=== PATIENT | female | born 1985 | race Caucasian/White ===

== ENCOUNTER → 2019-01-30 15:03 | Outpatient (CLI) | payer MEDICAID, SELFPAY ==
[2019-01-30 15:27] LABS: Basophils # 0.1 K/mm3 (0-0.2); Basophils % 0.6 % (0.1-2.0); Eosinophils # 0.3 K/mm3 (0.0-0.4); Eosinophils % 2.3 % (0.1-12.0); Hematocrit 43.8 % (37.0-47.0); Hemoglobin 13.5 g/dL (12.2-16.2); Lymphocytes # 2.1 K/mm3 (0.7-4.5); Lymphocytes % 19.1 % (10-50); Mean Corpuscular HGB Conc 30.8 g/dL (31.8-35.4); Mean Corpuscular Hemoglobin 29.7 pg (27.0-31.2); Mean Corpuscular Volume 96.4 fl (81-99); Mean Platelet Volume 8.9 fl (7.4-10.4); Monocytes # 0.6 K/mm3 (0.1-1.0); Monocytes % 5.3 % (1.7-9.3); Neutrophils # 8.2 K/mm3 (1.8-7.8); Neutrophils % 72.7 % (37.0-80.0); Platelet Count 331 K/mm3 (142-424); Red Blood Count 4.55 M/mm3 (4.20-5.40); Red Cell Distribution Width 13.6 % (11.5-17.5); White Blood Count 11.2 K/mm3 (4.8-10.8)
[2019-01-30 16:36] LABS: Alanine Aminotransferase 33 U/L (12-78); Albumin Level 3.7 gm/dL (3.4-5.0); Albumin/Globulin Ratio 1.1 (1.1-1.8); Alkaline Phosphatase 84 U/L (46-116); Anion Gap 18.8 mEq/L (5-15); Aspartate Amino Transferase 20 U/L (15-37); Bilirubin,Total 0.1 mg/dL (0.2-1.0); Blood Urea Nitrogen 6 mg/dL (7-18); Calcium 8.6 mg/dL (8.5-10.1); Carbon Dioxide 20 mmol/L (21.0-32.0); Chloride 106 mmol/L (98-107); Chol/HDL Ratio 4.8 (1-3.5); Cholesterol 201 mg/dL (140-200); Creatinine,Serum 1.15 mg/dL (0.55-1.02); Estimated Glomerular Filt Rate 54 ml/min (>60); Free T4 (Free Thyroxine) 0.79 ng/dl (0.76-1.46); GFR (African American) 66 ML/MIN (>60); Globulin 3.5 gm/dl (1.3-3.2); Glucose 115 mg/dL (74-106); HDL Cholesterol 42 mg/dL (29-89); LDL Cholesterol 140 mg/dL (0-130); Potassium 3.8 mmoL/L (3.5-5.1); Sodium 141 mmol/L (136-145); Thyroid Stimulating Hormone 1.83 uIU/ml (0.358-3.740); Total Protein,Serum 7.2 gm/dL (6.4-8.2); Triglycerides 94 mg/dL (30-200); VLDL Cholesterol 19 mg/dL (0-40)
== END ==
PROVIDERS: Visit Provider Emergency Medicine
DX: E66.3 Overweight (principal); F32.9 Major depressive disorder, single episode, unspecified; E55.9 Vitamin D deficiency, unspecified
CPT/HCPCS: 80053; 80061; 82652; 84439; 84443; 85025

== ENCOUNTER → 2019-02-24 17:09 | Outpatient (CLI) | payer MEDICAID, SELFPAY | PROVIDERS: Visit Provider Nurse Practitioner Family | DX: N39.0 Urinary tract infection, site not specified (principal) | CPT/HCPCS: 87086 ==

== ENCOUNTER 2019-08-02 18:33 | Emergency (ER) | payer MEDICAID, SELFPAY ==
[2019-08-02 18:48] VITALS: BP 119/76; PULSE 82; RESP 18; TEMP 36.9; O2SAT 99; BMI 29.7
[2019-08-02 18:57] LABS: Microscopic, Urine URINE MICROSCOPIC (MICROSCOPIC)
[2019-08-02 19:00] LABS: Appearance,Urine CLEAR (Clear); Blood, Urine Negative (Negative); Color,Urine YELLOW (Yellow); Glucose,Urine (UA) Negative (Negative); Ketones,Urine TRACE (Negative); Leukocyte Esterase,Urine Negative (Negative); Nitrate,Urine Negative (Negative); PH,Urine 5.5 (5.0-8.5); Protein,Urine Negative (Negative); Specific Gravity, Urine >= 1.030 (1.005-1.030); Urobilinogen,Urine 0.2 EU/dl (0.2)
[2019-08-02 19:03] LABS: Urine Pregnancy, HCG Qual. Negative (Negative)
[2019-08-02 19:05] LABS: Bilirubin,Urine Negative (Negative)
[2019-08-02 19:10] LABS: Bacteria,Urine 1+ /lpf
--- NOTE | 2019-08-02 19:15 | PC.NURSE ---
per report from Maya Lowry RN an IV was attempted and pt was very nervous, moved around a lot and said she needed a break before being stuck again.
--- NOTE | 2019-08-02 19:19 | HMH.EDGENADL ---
ED Disposition Clinical Impression: Vomiting Qualifiers: Vomiting type: unspecified Vomiting Intractability: non-intractable Nausea presence: with nausea Qualified Code(s): R11.2 - Nausea with vomiting, unspecified Disposition: Left Against Medical Advice Condition on Discharge: Fair Instructions: DI for Nausea -- Adult Referrals: Baudilio Quinones MD [Primary Care Provider] - Time of Disposition: 20:33 - Critical Care Critical Care Time: No Attestation: On 08/02/19, the high probability of a clinically significant, sudden or life threatening deterioration of the following system(s) required my full and direct attention, intervention and personal management. The time I documented below is in addition to time spent performing reported procedures but includes the following listed in this critical care notation. Medical Decision Making - Nadir Inquiry Pt receiving controlled substance: No Vital Signs: 08/02/19 18:48 08/02/19 20:14 Temperature 98.4 F 0 F L Temperature Source Oral Pulse Rate 0 L Pulse Rate [Right Radial] 82 Respiratory Rate 18 0 L Blood Pressure 0/0 L Blood Pressure [Right Arm] 119/76 Blood Pressure Mean [Right Arm] 90 Blood Pressure Source [Right Arm] Automatic Cuff Blood Pressure Position [Right Arm] Sitting 02 Sat by Pulse Oximetry 99 Oxygen Delivery Method Room Air - Lab Data Lab Results 08/02/19 15:47: Urine Color Yellow, Urine Appearance Clear, Urine pH 5.5, Ur Specific [place] >= 1.030, Urine Protein Negative, Urine Glucose (UA) Negative, Urine Ketones Trace, Urine Blood Negative, Urine Nitrate Negative, Urine Bilirubin Negative, Urine Urobilinogen 0.2, Ur Leukocyte Esterase Negative, Urine WBC 3-5, Ur Squamous Epith Cells 5-10, Urine Bacteria 1+ 08/02/19 15:47: Urine HCG, Qual Negative Orders (Tests/Meds): ED MEDICATIONS Discontinued Medications Generic Name Dose Route Start Last Admin Trade Name Freq PRN Reason Stop Dose Admin Sodium Chloride 1,000 mls @ 999 mls/hr 08/02/19 19:00 Sod Chlor 0.9% 1000ml Bag IV 08/02/19 20:00 .Q1H1M NICHELLE Ondansetron HCl 4 mg 08/02/19 18:58 Zofran 4mg/2ml Vial IV 08/02/19 18:59 ONCE ONE Ondansetron HCl 4 mg 08/02/19 19:30 08/02/19 19:31 Zofran 4mg Odt SL 08/02/19 19:31 4 mg ONCE ONE Administration ORDERS Category Date Time Status CBC w/Auto Diff [Complete Blood Count Auto Diff] Stat Lab 08/02/19 18:57 Ordered CMP [Comprehensive Metabolic Panel] Stat Lab 08/02/19 18:57 Ordered Lipase Stat Lab 08/02/19 18:57 Ordered Medical Decision Narrative: In summary this is a 34-year-old female presenting to the emergency department with generalized malaise and vomiting. Patient is in no acute distress arrival to the emergency department. Vital signs are stable. Diagnoses include viral gastroenteritis, urinary tract infection, pyelonephritis, intrauterine , extrauterine , other viral syndrome. Plan to obtain CBC, CMP, lipase, test, urinalysis. She does not have abdominal pain, doubt acute surgical abdomen. She also has had an appendectomy. Patient given IV fluid bolus and IV Zofran. test negative. No signs of urinary tract infection. Laboratory results are generally unremarkable. Shortly after my evaluation patient decided that she no longer wanted to be treated in the emergency department. She was offered many opportunities to stay for further management. Instead said she was feeling better and wanted to go home. We did not have a diagnosis at this time. Patient signed out AGAINST MEDICAL ADVICE. General Adult HPI - General Chief complaint: Nausea/Vomiting/Diarrhea Stated complaint: vomitting nausea sweating fatigue clammy Time Seen by Provider: 08/02/19 19:00 Mode of Arrival: Ambulatory Source of Information: Patient Limitations: No Limitations Description of Symptoms (Recalled from ER Triage Doc. by RN): Pt reports n/v, fatigue, clammy fee
--- NOTE | 2019-08-02 19:32 | PC.NURSE ---
Alexi Livingston attemped IV in the pt hand and was unsuccessful.
--- NOTE | 2019-08-02 19:46 | PC.NURSE ---
This nurse attempted to get IV access on pt. pt was prepped to stick right hand. pt stated i dont want to be stuck in the hand again it hurts too bad and they roll. this nurse readjusted the tourniquet to the top of the arm and attempted to stick the Pts AC. pt stated to stop and that is hurt and requested this nurse stop and remove the tourniquet as the pt reached up to untie it herself. this nurse apologized and assured her that if we can gain IV access we can better treat/ diagnose her.
--- NOTE | 2019-08-02 20:11 | PC.NURSE ---
pt walked out of room and stated she was leaving and didnt want this anymore. pt refused vitals at this time.
[2019-08-02 20:14] VITALS: BP 0/0; PULSE 0; RESP 0; TEMP -17.7; TEMP 0; O2SAT 0
== END 2019-08-02 20:16 | disposition left against medical advice (07) ==
LOC: ER 18:49
PROVIDERS: Emergency Provider Emergency Medicine; PCP Emergency Medicine
DX: K52.9 Noninfective gastroenteritis and colitis, unspecified (principal); F41.8 Other specified anxiety disorders; F17.210 Nicotine dependence, cigarettes, uncomplicated
CPT/HCPCS: 81001; 81025; 99282

== ENCOUNTER → 2019-09-28 17:18 | Outpatient (CLI) | payer MEDICAID, SELFPAY | PROVIDERS: Visit Provider Obstetrics & Gynecology | DX: N89.8 Other specified noninflammatory disorders of vagina (principal) | CPT/HCPCS: 87086; 87088; 87186 ==

== ENCOUNTER 2020-03-17 13:22 | Emergency (ER) | payer MEDICAID, SELFPAY ==
[2020-03-17 13:23] VITALS: BP 147/68; PULSE 74; RESP 16; TEMP 36.8; O2SAT 98; BMI 26.6
--- NOTE | 2020-03-17 13:35 | XR_ITS ---
PROCEDURE: XR CHEST PORTABLE CLINICAL HISTORY: chills; night sweats COMPARISON: CR CXR2V XR chest 2V from 01/30/2018 FINDINGS: The cardiomediastinal silhouette and pulmonary vascularity are within normal limits. The lungs are clear without infiltrates, suspicious nodules, or pleural effusions. No acute bony abnormalities. IMPRESSION: No acute findings. Dictated by: Mario Fernando MD 03/18/2020 06:39 Mario Fernando MD in [facility] 03/18/2020 06:39
--- NOTE | 2020-03-17 13:38 | HMH.EDGENADL ---
ED Disposition Clinical Impression: Gastroenteritis Disposition: Left Against Medical Advice Condition on Discharge: Good Instructions: DI for Diarrhea and Traveler's Diarrhea -- Adult, DI for Diarrhea and Traveler's Diarrhea -- Child, DI for Nausea -- Adult, DI for Nausea -- Child Additional Instructions: Pt eloped prior to completion of workup Referrals: Baudilio Quinones MD [Primary Care Provider] - - Critical Care Critical Care Time: No Attestation: On 03/17/20, the high probability of a clinically significant, sudden or life threatening deterioration of the following system(s) required my full and direct attention, intervention and personal management. The time I documented below is in addition to time spent performing reported procedures but includes the following listed in this critical care notation. Medical Decision Making - Medical Records Medical records reviewed: Yes: I reviewed the patient's medical records. - Nadir Inquiry Pt receiving controlled substance: No Vital Signs: 03/17/20 13:23 Temperature 98.3 F Temperature Source Oral Pulse Rate [Left Radial] 74 Respiratory Rate 16 Blood Pressure [Right Arm] 147/68 H Blood Pressure Mean [Right Arm] 94 Blood Pressure Source [Right Arm] Automatic Cuff Blood Pressure Position [Right Arm] Sitting 02 Sat by Pulse Oximetry 98 Oxygen Delivery Method Room Air Orders (Tests/Meds): ED MEDICATIONS Generic Name Dose Route Start Last Admin Trade Name Freq PRN Reason Stop Dose Admin Sodium Chloride 1,000 mls @ 999 mls/hr 03/17/20 14:00 03/17/20 13:56 Sod Chlor 0.9% 1000ml Bag IV 03/17/20 15:00 999 mls/hr .Q1H1M NICHELLE Administration Discontinued Medications Generic Name Dose Route Start Last Admin Trade Name Freq PRN Reason Stop Dose Admin Metoclopramide HCl 10 mg 03/17/20 13:53 03/17/20 13:56 Metoclopramide Hcl 10mg/2ml Vial IVP 03/17/20 13:54 10 mg ONCE ONE Administration Ondansetron HCl 4 mg 03/17/20 13:56 03/17/20 13:57 Ondansetron 4mg Odt SL 03/17/20 13:57 4 mg ONCE ONE Administration ORDERS Category Date Time Status XR chest portable Stat Exams 03/17/20 13:35 Taken Complete Blood Count Auto Diff Stat Lab 03/17/20 13:35 Ordered Comprehensive Metabolic Panel Stat Lab 03/17/20 13:35 Ordered Covid-19 IgG/IgM (H) Stat Lab 03/17/20 13:46 Ordered Covid-19 Nasal PCR ([facility]) Routine Lab 03/17/20 13:38 Ordered ESR [Erythrocyte Sedimentation Rate] Stat Lab 03/17/20 13:41 Ordered Lactic Acid Stat Lab 03/17/20 13:36 Ordered Lipase Stat Lab 03/17/20 13:36 Ordered QuantiFERON Client Incubated Stat Lab 03/17/20 13:36 Ordered General Adult HPI - General Chief complaint: Nausea/Vomiting/Diarrhea Stated complaint: vomiting,chills Time Seen by Provider: 03/17/20 13:32 Mode of Arrival: Ambulatory Limitations: No Limitations Description of Symptoms (Recalled from ER Triage Doc. by RN): Chills and vomiting since yesterday. 6 episodes since yesterday of vomiting. Denies any other issues at this time. - History of Present Illness HPI narrative: This is a 35-year-old female that presents with 1 day history of persistent vomiting and chills. Patient also reports body aches that are limited to the legs. No diarrhea no abdominal pain. No cough. Patient does report decreased sense of taste but no change in her sense of smell. She denies any cough or shortness of breath. She does report night sweats and approximately 20 pound weight loss over the course of the last several weeks. She also reports intermittent right lower molar pain but none at present. Symptoms are moderate intensity without palliating or measure. Vomiting worse after eating. - 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/mL oral concentrate 65 mg PO DAILY ml 07/31/19 03/17/20 Cariprazine HCl [Vraylar] 6 mg PO DAILY 03/17/20 03/17/20 polyethylene glycoL 3350 17 g PO .ben
--- NOTE | 2020-03-17 13:50 | PC.NURSE ---
Patient stated she wasnt feeling any relief from the Sub lingual zofran. MD notified. MD gave orders for Reglan 10mg IV. NDKA. Procedure/Medication explained to pt. Patient consented verbally to recieve medication. Reglan given to pt.
--- NOTE | 2020-03-17 14:15 | PC.NURSE ---
Addendum entered by Kevon Cox, EMT-P 03/17/20 14:18: Note time should be at 1340 when patient refused test. Original Note: Patient refused COVID test. Patient states she doesn't want it going in her nose.
[2020-03-17 14:46] VITALS: BP 147/68; PULSE 74; RESP 16; TEMP 36.8; O2SAT 98
--- NOTE | 2020-03-17 14:46 | PC.NURSE ---
Pt was seen in the Er for chills and vomiting. Once an IV was placed the pt was given fluids and reglan IV per MD. Pt got sweaty and states she just didnt feel right from that medicine and wanted her IV out and she wanted to just leave. States she didnt understand why the MD didnt just give her promethazine instead of that medicine. Educated the pt that this medicine worked for her stomach as well as the promethazine and that the reglan can cause side effects as to what she is describing. Went to get the AMA paper and tell the MD of pt symptoms and when I returned to the room. PT has DC her own IV which was on the floor and left the room. Per other staff she walked around the Er and went out the exit door.
== END 2020-03-17 15:00 | disposition left against medical advice (07) ==
PROVIDERS: Emergency Provider Emergency Medicine; PCP Emergency Medicine
DX: K52.9 Noninfective gastroenteritis and colitis, unspecified (principal); F41.8 Other specified anxiety disorders; F17.210 Nicotine dependence, cigarettes, uncomplicated; Z79.899 Other long term (current) drug therapy
CPT/HCPCS: 71045; 96365; 99282

== ENCOUNTER 2020-03-24 14:18 | Emergency (ER) | payer MEDICAID, SELFPAY ==
[2020-03-24 14:45] VITALS: BP 129/80; PULSE 71; RESP 14; TEMP 36.3; O2SAT 100; BMI 27.3
--- NOTE | 2020-03-24 15:16 | HMH.EDUTC ---
[facility] [place] Clinical Impression: Viral syndrome, Exposure to COVID-19 virus Disposition: Home, Self-Care Condition on Discharge: Good Instructions: DI for COVID-19 (Suspected or Confirmed ), Preventing the Spread of Coronavirus Discharge Instructions Additional Instructions: Drink plenty of fluids. Take tylenol for pain or fever. Return if you begin to have difficulty breathing. Follow up with your regular doctor. GO TO THE ER FOR ANY WORSENING SYMPTOMS Prescriptions: Ondansetron [Zofran 4mg ODT] 4 mg PO Q8HP PRN #12 tab.rapdis PRN Reason: Nausea Transmission Status: Received by [facility] #[id number] Referrals: Baudilio Quinones MD [Primary Care Provider] - Time of Disposition: 15:24 Medical Decision Making - Medical Records Medical records reviewed: No: I reviewed the patient's medical records. - Nadir Inquiry Pt receiving controlled substance: No Vital Signs: 03/24/20 14:45 03/24/20 15:28 Temperature 97.3 F L 97.3 F L Temperature Source Oral Pulse Rate 71 Pulse Rate [Right Brachial] 71 Respiratory Rate 14 14 Blood Pressure 129/80 Blood Pressure [Right Arm] 129/80 Blood Pressure Mean [Right Arm] 96 Blood Pressure Source [Right Arm] Automatic Cuff Blood Pressure Position [Right Arm] Sitting 02 Sat by Pulse Oximetry 100 Oxygen Delivery Method Room Air [facility] [place] - General Stated complaint: covid Test Time Seen by Provider: 03/24/20 15:16 Mode of Arrival: Ambulatory Source of Information: Patient Limitations: No Limitations Description of Symptoms (Recalled from Triage Doc. by RN): COVID TEST D/T EXPOSURE. C/O SWEATS, CHILLS, BODY ACHES, AND LOSS OF TASTE AND SMELL HEENT Symptoms (Recalled from RN notes): Yes Resp Symptoms (Recalled from RN notes): No Skin Symptoms (Recalled from RN notes): No MS Symptoms (Recalled from RN notes): No Functional Status (Recalled from RN notes): WNL - History of Present Illness Provider Complaint: She c/o 1 day of worsening cough, body aches, fatiuge, and feeling bad. Her has covid-19 currently. She denies any shortness of breath and chest pain. - 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/mL oral concentrate 65 mg PO DAILY ml 06/08/20 01/24/21 polyethylene glycoL 3350 17 g PO .every other day 03/17/20 03/17/20 [Polyethylene Glycol 3350] Previous Rx's Medication Instructions Recorded lorazepam 1 mg tablet 1 mg PO DAILY PRN #30 tab 02/21/20 cariprazine 6 mg capsule 6 mg PO DAILY #30 cap 03/22/20 trazodone 100 mg tablet 100 mg PO QHS #30 tab 03/22/20 Ondansetron [Zofran 4mg ODT] 4 mg PO Q8HP PRN #12 tab.rapdis 03/24/20 Allergies Allergy/AdvReac Type Severity Reaction Status Date / Time No Known Allergies Allergy Verified 03/04/20 09:58 - Worker's Comp Is this a Worker's Comp case?: No [facility] History - Hepatitis A Screen Drug use history?: No High risk sexual behaviors?: No History of sexually transmitted infection?: No Currently employed?: No Childcare worker?: No Do you have indoor plumbing?: Yes Do you have electricity?: Yes Attestation statement:: This patient has been screened for Hepatitis A risk factors. I have reviewed the patient's past medical history: Yes Medical History: Reports:: Anxiety, Depression Denies:: Diabetes Mellitus Type 1, Diabetes Mellitus Type 2 Other Medical History: Reports: Other Comment: PREMENSTRUAL TENSION Other Surgeries: Yes: Appendectomy, , Other Amputation: No Fractures: No Comment: P* C/S--2011. CYST REMOVED FROM NECK---05/24/2012. LAP. DAVIS---2016 - Social History Smoking Status: Current every day smoker Tobacco Type: cigarettes # Packs/Day (cigarettes): 1 Alcohol Intake: never Alcohol Intake Frequency:: other Substance Use Type: former substance user Occupational Status: other Housing: house Household Members: family Comment: -she is [facility] a [facility] -
[2020-03-24 15:28] VITALS: BP 129/80; PULSE 71; RESP 14; TEMP 36.3; O2SAT 100
--- NOTE | 2020-03-24 19:41 | PC.NURSE ---
PATIENT NOTIFIED OF POSITIVE COVID RESULTS
== END 2020-03-24 15:34 | disposition home or self-care (01) ==
PROVIDERS: Emergency Provider Nurse Practitioner Family; PCP Emergency Medicine
DX: U07.1 COVID-19 (principal); B34.9 Viral infection, unspecified; F41.8 Other specified anxiety disorders; F17.210 Nicotine dependence, cigarettes, uncomplicated
CPT/HCPCS: 99202; G0463; U0003

== ENCOUNTER → 2020-04-10 16:16 | Outpatient (CLI) | payer MEDICAID, SELFPAY | PROVIDERS: PCP Emergency Medicine; Visit Provider Nurse Practitioner Family | DX: Z20.822 Contact with and (suspected) exposure to COVID-19 (principal); U07.1 COVID-19 | CPT/HCPCS: U0003 ==

== ENCOUNTER → 2020-10-24 15:37 | Outpatient (CLI) | payer MEDICAID, SELFPAY | PROVIDERS: Visit Provider Obstetrics & Gynecology | DX: N39.0 Urinary tract infection, site not specified (principal) | CPT/HCPCS: 87086; 87088; 87186 ==

== ENCOUNTER 2021-02-23 23:31 | Emergency (ER) | payer MEDICAID, SELFPAY ==
[2021-02-23 23:49] VITALS: BP 116/45; PULSE 82; RESP 17; TEMP 36.7; O2SAT 98; BMI 28.1
--- NOTE | 2021-02-24 00:18 | HMH.EDSKAF ---
ED Disposition Clinical Impression: Abscess of skin or subcutaneous tissue, Cellulitis Disposition: Home, Self-Care Condition on Discharge: Good Instructions: DI for Skin Abscess, DI for Pilonidal Cyst Drainage or Removal, Cellulitis Prescriptions: Sulfamethoxazole/Trimethoprim [Bactrim DS tablet] 1 each PO BID 5 Days #10 tab Transmission Status: Pending to [facility] [place] #[id number] Referrals: Baudilio Quinones MD [Primary Care Provider] - - Critical Care Critical Care Time: No Attestation: On 02/23/21, the high probability of a clinically significant, sudden or life threatening deterioration of the following system(s) required my full and direct attention, intervention and personal management. The time I documented below is in addition to time spent performing reported procedures but includes the following listed in this critical care notation. Medical Decision Making - Nadir Inquiry Pt receiving controlled substance: No Vital Signs: 02/23/21 23:49 Temperature 98.0 F Temperature Source Oral Pulse Rate [Right Brachial] 82 Respiratory Rate 17 Blood Pressure [Right Arm] 116/45 L Blood Pressure Mean [Right Arm] 68 Blood Pressure Source [Right Arm] Automatic Cuff Blood Pressure Position [Right Arm] Sitting 02 Sat by Pulse Oximetry 98 Oxygen Delivery Method Room Air Orders (Tests/Meds): ED MEDICATIONS Discontinued Medications Generic Name Dose Route Start Last Admin Trade Name Keysha PRN Reason Stop Dose Admin Acetaminophen 1,000 mg 02/24/21 00:14 02/24/21 00:24 Acetaminophen 500mg Tab PO 02/24/21 00:15 1,000 mg ONCE ONE Administration Lidocaine HCl 1 ml 02/24/21 00:14 02/24/21 00:30 Lidocaine 4% Topical Soln 1ml TP 02/24/21 00:15 1 ml ONCE ONE Administration Ondansetron HCl 4 mg 02/24/21 00:14 02/24/21 00:25 Ondansetron 4mg Odt SL 02/24/21 00:15 4 mg ONCE ONE Administration Medical Decision Narrative: 36 yo female presents with abscess above [place] cleft, with surrounding erythema, consistent with small pilonidal abscess with cellulitis. Does not extend into anus. first time this has happened per patient. Given zofran for nausea, tylenol for pain. When ED RN placed LET on area in preparation for drainage, the abscess began draining spontaneously and fluctuance resolved. Patient will be started on course of keflex for cellulitis. Advised to f/u with PCP in 1 week. Given ED return precautions. Skin/Abscess/FB HPI - General Chief complaint: Skin/Abscess/Foreign Body Stated complaint: abscess on tail bone with nausea Time Seen by Provider: 02/24/21 00:19 Mode of Arrival: Family Vehicle Limitations: No Limitations Description of Symptoms (Recalled from ER Triage Doc. by RN): presents with small pilonidal-type cyst that just developed (per her statement) over last 24 hours. patient states afebrile at this time. vss. notable pain to area. no previous history. - History of Present Illness HPI narrative: 36 yo female presents for wound check. Patient reports seeing rounded mass on tailbone with redness surrounding it noticed by her earlier tonight. she has been feeling tailbone pain and nausea all day today but just noticed mass. no previous mass or infection in this area before. states sometimes she shaves hair down there so that may have caused it. - Related Data Home Medications Medication Instructions Recorded Confirmed RX: polyethylene glycoL 3350 17 g PO .every other day 03/17/20 01/13/21 [Polyethylene Glycol 3350] methadone 10 mg/mL oral concentrate 80 mg PO DAILY ml 05/29/20 01/13/21 Previous Rx's Medication Instructions Recorded lorazepam 1 mg tablet 1 mg PO DAILY PRN #30 tab 02/12/21 trazodone 100 mg tablet 100 mg PO QHS #30 tab 02/12/21 vortioxetine 10 mg tablet 10 mg PO DAILY #30 tab 02/12/21 ondansetron 4 mg disintegrating 4 mg PO Q8HP PRN #15 tab 02/18/21 tablet Sulfamethoxazole/Trimethoprim 1 each PO BID 5 Days #10 tab 02/24
[2021-02-24 00:52] VITALS: BP 116/45; PULSE 82; RESP 14; TEMP 36.7; O2SAT 98
== END 2021-02-24 00:57 | disposition home or self-care (01) ==
PROVIDERS: Emergency Provider Student in an Organized Health Care Education/Training Program; PCP Emergency Medicine
DX: L05.01 Pilonidal cyst with abscess (principal); F41.8 Other specified anxiety disorders
CPT/HCPCS: 99281

== ENCOUNTER → 2021-03-20 10:39 | Outpatient (CLI) | payer MEDICAID, SELFPAY ==
[2021-03-21 13:46] LABS: Covid-19 Nasal PCR Sendout Lex POSITIVE
== END ==
PROVIDERS: Visit Provider Nurse Practitioner
DX: U07.1 COVID-19 (principal)
CPT/HCPCS: C9803; U0004; U0005

== ENCOUNTER 2021-12-01 06:07 | Emergency (ER) | payer MEDICAID, SELFPAY ==
--- NOTE | 2021-12-01 06:04 | ECG_ITS ---
APPROVED REPORT Exam: Resting ECG HR:78 bpm ECG Measurements Heart Rate 78 AXES IL 146 P 68 QRSd 83 QRS 76 QT 396 T 67 QTc 430 Conclusion SINUS RHYTHM POSSIBLE RIGHT VENTRICULAR CONDUCTION DELAY [RSR (QR) IN V1/V2] BORDERLINE ECG UNCONFIRMED REPORT Electronically signed by : Robson Ivy MD 12/01/2021 17:57:26
[2021-12-01 06:07] VITALS: BP 122/61; PULSE 85; RESP 19; TEMP 36.7; O2SAT 98; BMI 26.6
[2021-12-01 06:11] VITALS: BMI 26.6
--- NOTE | 2021-12-01 06:15 | XR_ITS ---
FINAL REPORT CLINICAL HISTORY: cp, soa, dsypnea COMPARISON: 03/17/2020 FINDINGS: Two views of the chest were obtained. The heart size and pulmonary vascularity are within normal limits. The mediastinum is normal. No acute pulmonary abnormality is identified. There is no pneumothorax. The bony thorax is intact. IMPRESSION: No active cardiopulmonary disease. Reviewed, Interpreted and Dictated by Moy Salinas III, MD Transcribed by Sulma Falcon Authenticated and [facility]
[2021-12-01 06:41] LABS: Coronavirus 19, PCR Not Detected (NotDetected); Influenza A, PCR Not Detected (NotDetected); Influenza B, PCR Not Detected (NotDetected)
[2021-12-01 06:42] LABS: Urine Pregnancy, HCG Qual. Negative (Negative)
[2021-12-01 06:45] LABS: Basophils # 0.2 K/mm3 (0-0.2); Basophils % 1.3 % (0.1-2.0); Eosinophils # 0.4 K/mm3 (0.0-0.4); Eosinophils % 3.5 % (0.1-12.0); Hematocrit 41.6 % (37.0-47.0); Hemoglobin 13.6 g/dL (12.2-16.2); Lymphocytes # 3.2 K/mm3 (0.7-4.5); Lymphocytes % 27.3 % (10-50); Mean Corpuscular HGB Conc 32.7 g/dL (31.8-35.4); Mean Corpuscular Hemoglobin 31.3 pg (27.0-31.2); Mean Corpuscular Volume 95.6 fl (81-99); Mean Platelet Volume 8.3 fl (7.4-10.4); Monocytes # 0.7 K/mm3 (0.1-1.0); Monocytes % 5.8 % (1.7-9.3); Neutrophils # 7.2 K/mm3 (1.8-7.8); Neutrophils % 62.1 % (37.0-80.0); Platelet Count 299 K/mm3 (142-424); Red Blood Count 4.35 M/mm3 (4.20-5.40); Red Cell Distribution Width 13.5 % (11.5-17.5); White Blood Count 11.6 K/mm3 (4.8-10.8)
--- NOTE | 2021-12-01 06:49 | PC.NURSE ---
Pt ambulatory to bathroom to provide urine sample
[2021-12-01 06:50] LABS: Chloride 105 mmol/L (98-107); Potassium 3.8 mmoL/L (3.5-5.1); Sodium 140 mmol/L (136-145)
[2021-12-01 06:53] LABS: Anion Gap 10.8 mEq/L (5-15); Blood Urea Nitrogen 15 mg/dl (7-17); Calcium 8.4 mg/dl (8.4-10.2); Carbon Dioxide 28 mmol/L (22.0-30.0); Creatinine Clearance Estimated 95 mL/min (50-200); Estimated Glomerular Filt Rate 63 ml/min (>60); GFR (African American) 76 ML/MIN (>60); Glucose 154 mg/dl (74-100)
[2021-12-01 07:02] LABS: NT Pro Brain Natriuretic Pep. 109 pg/mL (0-125)
[2021-12-01 07:07] LABS: Troponin I < 0.01 ng/ml (0.00-0.034)
[2021-12-01 07:30] VITALS: BP 109/63; PULSE 61; RESP 16; O2SAT 96
--- NOTE | 2021-12-01 07:57 | HMH.EDGENADL ---
Discharge Plan Disposition Patient Disposition: Home, Self-Care Condition: Fair Prescriptions Prescriptions: New ibuprofen 600 mg tablet 600 mg PO Q8H PRN (Reason: pain) Qty: 30 0RF omeprazole 20 mg tablet,delayed release (DR/EC) 20 mg PO DAILY 28 Days Qty: 28 0RF No Action methadone 10 mg/mL concentrate 80 mg PO DAILY ondansetron 4 mg tablet,disintegrating 4 mg PO Q8HP PRN (Reason: Nausea) Qty: 15 0RF lorazepam [Ativan] 1 mg tablet 1 mg PO BID PRN (Reason: anxiety) Qty: 40 1RF trazodone 100 mg tablet 100 mg PO QHS Qty: 30 1RF varenicline [Chantix] 1 mg tablet 1 mg PO DAILY Qty: 30 1RF Trintellix 5 mg tablet 5 mg PO DAILY Qty: 30 1RF Referrals Follow up/Referrals: Provider,Referral, MD [Primary Care Provider] - See instructions Activity Restrictions/Add. Instructions Additional Instructions/Restrictions: You have been evaluated for chest pain, diagnosed with pleurisy. Please take anti-inflammatory medication like 600 mg ibuprofen every 6-8 hours. Trial omeprazole for reflux, sometimes chest pain at night can be due to GERD. Please follow-up with your primary care doctor in 1 to 2 days for symptom recheck. Return to the emergency department at once for any new or worsening symptoms, chest pain, difficulty breathing, any other concerns Clinical Impressions Clinical Impression: Chest pain, pleuritic Instructions Patient Instructions: DI for Atypical Chest Pain, DI for Pleurisy Discharge ED Provider: Ada Valdez Adult HPI General Chief complaint: Chest Pain Stated complaint: chest pain Time Seen by Provider: 12/01/21 07:58 Mode of Arrival: Family Vehicle Source of Information: Patient Limitations: No Limitations Description of Symptoms (Recalled from ER Triage Doc. by RN): Pt c/o generalized chest pain, upper back pain, SOA, and pain on deep inspiration. States she woke up earlier than usual this am, and felt the pain & soa. States she took Tylenol but was not relieved. Denies any falls or trauma. Pt also c/o sinus & chest congestion with occasional production. History of Present Illness HPI narrative: 36-year-old female presenting to the emergency department with chest pain. Pain started about 3 hours ago. Woke her from sleep. It is located in the front portion of the chest, near her sternum. Described as achy and somewhat sharp. Radiates toward her back. Has been constant in onset. She tried taking Tylenol without relief. Pain is worse with inspiration. No nausea, diaphoresis. Does not feel like heartburn. She has never had pain like this before. Denies recent illness, upper respiratory infection, cough, fevers, chills. She smokes tobacco. No history of DVT or PE. No leg swelling. No estrogen use. 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 05/29/20 11/14/21 Previous Rx's Medication Instructions Recorded ondansetron 4 mg disintegrating 4 mg PO Q8HP PRN Nausea #15 tabs 07/22/21 tablet lorazepam 1 mg tablet (Ativan) 1 mg PO BID PRN anxiety #40 tabs 11/14/21 trazodone 100 mg tablet 100 mg PO QHS #30 tabs 11/14/21 varenicline 1 mg tablet (Chantix) 1 mg PO DAILY #30 tabs 11/14/21 vortioxetine 5 mg tablet 5 mg PO DAILY #30 tabs 11/14/21 (Trintellix) ibuprofen 600 mg tablet 600 mg PO Q8H PRN pain #30 tabs 12/01/21 omeprazole 20 mg tablet,delayed 20 mg PO DAILY 4 weeks #28 tabs 12/01/21 release Allergies Allergy/AdvReac Type Severity Reaction Status Date / Time No Known Allergies Allergy Verified 11/14/21 10:26 [facility] Medical History (Updated 12/01/21 @ 10:09 by Ada Valdez DO) Anxiety Cervical intraepithelial neoplasia (JACLYN) Depression History of substance abuse Surgical History (Updated 11/14/21 @ 10:28 by Chandrika Perez CMA) History of appendectomy History of section, classical Family History (Updated
--- NOTE | 2021-12-01 07:58 | PC.NURSE ---
notified lab [facility] is adding a ddimer level on pt. spoke with laura
[2021-12-01 08:00] VITALS: BP 111/63; PULSE 71; RESP 16; O2SAT 95
[2021-12-01 08:13] LABS: D-Dimer 0.76 ug/mL (0.0-0.5)
--- NOTE | 2021-12-01 08:21 | CT_ITS ---
FINAL REPORT TECHNIQUE: Then section axial CT images of the chest were obtained with contrast. Three-D reformatted images were also obtained.This study was performed with techniques to keep radiation doses as low as reasonably achievable (ALARA). Individualized dose reduction techniques using automated exposure control or adjustment of mA and/or kV according to the patient''s size were employed. CLINICAL HISTORY: dyspnea, elevated d-dimer FINDINGS: There is no evidence of pulmonary embolism. There is no evidence of thoracic aortic aneurysm or dissection. There are small mediastinal lymph nodes without adenopathy. There is mild dependent atelectasis. There is no evidence of pulmonary mass or suspicious nodule. No localized inflammatory process is seen within the lungs. A calcified granuloma is seen in the right middle lobe. There is skin thickening of the anterior left axilla of uncertain significance that may be inflammatory. Correlate clinically. Limited images of the upper abdomen are unremarkable. IMPRESSION: No evidence of pulmonary embolism. Skin thickening of the anterior left axilla of uncertain significance may be inflammatory. Correlate clinically. Reviewed, Interpreted and Dictated by Moy Salinas III, MD Transcribed by Negro Cross Authenticated and [facility]
[2021-12-01 08:30] VITALS: BP 110/63; PULSE 64; RESP 16; O2SAT 97
--- NOTE | 2021-12-01 09:08 | PC.NURSE ---
pt return from CT
--- NOTE | 2021-12-01 09:12 | PC.NURSE ---
pt up to restroom
[2021-12-01 09:34] LABS: Troponin I < 0.01 ng/ml (0.00-0.034)
--- NOTE | 2021-12-01 10:41 | PC.NURSE ---
pt being D/C With her mom
[2021-12-01 10:54] VITALS: BP 129/80; PULSE 75; RESP 20; TEMP 36.7; O2SAT 98
== END 2021-12-01 10:57 | disposition home or self-care (01) ==
PROVIDERS: Emergency Medicine; Emergency Provider Emergency Medicine
DX: R09.1 Pleurisy (principal); N87.9 Dysplasia of cervix uteri, unspecified; R06.02 Shortness of breath; M54.6 Pain in thoracic spine; R00.0 Tachycardia, unspecified; Z20.822 Contact with and (suspected) exposure to COVID-19; F19.11 Other psychoactive substance abuse, in remission; F32.A Depression, unspecified; F41.9 Anxiety disorder, unspecified; F17.210 Nicotine dependence, cigarettes, uncomplicated; Z79.1 Long term (current) use of non-steroidal anti-inflammatories (NSAID); Z79.891 Long term (current) use of opiate analgesic; Z79.899 Other long term (current) drug therapy; Z82.49 Family history of ischemic heart disease and other diseases of the circulatory system; Z83.3 Family history of diabetes mellitus; Z81.3 Family history of other psychoactive substance abuse and dependence; Z81.1 Family history of alcohol abuse and dependence
CPT/HCPCS: 71046; 71275; 80048; 81025; 83880; 84484; 85025; 85378; 93005; 99285; C9803; Q9967; U0003; U0005

== ENCOUNTER → 2022-06-30 07:39 | Outpatient (CLI) | payer MEDICAID, SELFPAY ==
--- NOTE | 2022-06-30 07:39 | US_ITS ---
FINAL REPORT TECHNIQUE: Multiple transverse and longitudinal images CLINICAL HISTORY: abdominal pain FINDINGS: The gallbladder shows no wall thickening, distention or stone disease. No biliary ductal dilatation is appreciated. No fluid collections are seen. Limited portions of the right liver are unremarkable. Limited portions of the right kidney are unremarkable. IMPRESSION: 1. No evidence of cholelithiasis 2. No evidence of biliary obstruction Reviewed, Interpreted and Dictated by Tyree Morales MD Transcribed by Sulma Falcon Authenticated and [facility]
== END ==
PROVIDERS: PCP Emergency Medicine; Visit Provider Emergency Medicine
DX: R10.9 Unspecified abdominal pain (principal)
CPT/HCPCS: 76705

== ENCOUNTER 2023-04-05 08:10 | Outpatient (CLI) | payer MEDICAID, SELFPAY ==
[2023-04-05 08:59] LABS: Basophils # 0.1 K/mm3 (0-0.2); Eosinophils # 0.3 K/mm3 (0.0-0.4); Eosinophils % 4.9 % (0.1-12.0); Hematocrit 40.5 % (37.0-47.0); Hemoglobin 13.6 g/dL (12.2-16.2); Lymphocytes # 1.9 K/mm3 (0.7-4.5); Lymphocytes % 29.3 % (10-50); Mean Corpuscular HGB Conc 33.7 g/dL (31.8-35.4); Mean Corpuscular Hemoglobin 30.8 pg (27.0-31.2); Mean Corpuscular Volume 91.6 fl (81-99); Mean Platelet Volume 8.5 fl (7.4-10.4); Monocytes # 0.4 K/mm3 (0.1-1.0); Monocytes % 5.4 % (1.7-9.3); Neutrophils # 3.9 K/mm3 (1.8-7.8); Neutrophils % 59.4 % (37.0-80.0); Platelet Count 288 K/mm3 (142-424); Red Blood Count 4.42 M/mm3 (4.20-5.40); Red Cell Distribution Width 13.5 % (11.5-17.5); White Blood Count 6.5 K/mm3 (4.8-10.8)
[2023-04-05 09:37] LABS: Chloride 108 mmol/L (98-107)
[2023-04-05 09:38] LABS: Potassium 3.7 mmoL/L (3.5-5.1); Sodium 137 mmol/L (136-145)
[2023-04-05 09:40] LABS: Alanine Aminotransferase 17 U/L (12-78); Anion Gap 9.7 mEq/L (5-15); Aspartate Amino Transferase 23 U/L (14-36); Blood Urea Nitrogen 12 mg/dl (7-17); Carbon Dioxide 23 mmol/L (22.0-30.0); Estimated Glomerular Filt Rate 70 ml/min (>60); GFR (African American) 85 ML/MIN (>60)
[2023-04-05 09:41] LABS: Albumin/Globulin Ratio 1.5 (1.1-1.8); Alkaline Phosphatase 82 U/L (38-126); Bilirubin,Total 0.2 mg/dl (0.2-1.3); Calcium 8.9 mg/dl (8.4-10.2); Chol/HDL Ratio 5.9 (1-3.5); Cholesterol 208 mg/dl (140-200); Globulin 2.6 g/dL (1.3-3.2); Glucose 121 mg/dl (74-100); HDL Cholesterol 35 mg/dl (40-60); Total Protein,Serum 6.6 g/dl (6.3-8.2); Triglycerides 118 mg/dl (30-150); VLDL Cholesterol 24 mg/dL (0-40)
[2023-04-05 09:49] LABS: C-Reactive Protein 0.7 mg/L (0-4)
[2023-04-05 09:56] LABS: Triiodothryronine (T3) Uptake 30 % (23.5-40.5)
[2023-04-05 09:57] LABS: Free Thyroxine Index 2.6 ug/dL (5.93-13.13); T4 (Thyroxine) 8.5 ug/dl (5.53-11.0)
[2023-04-05 10:00] LABS: Erythrocyte Sedimentation Rate 16 mm/hr (0-20)
[2023-04-05 10:10] LABS: Thyroid Stimulating Hormone 2.16 uIU/mL (0.465-4.68)
[2023-04-05 10:53] LABS: 25-OH Vitamin D, Total 28.6 ng/mL (30-100)
[2023-04-05 11:26] LABS: Vitamin B12 543 pg/mL (239-931)
[2023-04-06 08:18] LABS: HBsAg Screen Negative (Negative); HCV Ab Non Reactive (Non Reactive); Hep A Ab, IGM Negative (Negative); Hep B Core Ab, IgM Negative (Negative); LH 8.1 mIU/mL (.); Progesterone 0.4 ng/mL (.); Testosterone,Total 11 ng/dL (8-60)
[2023-04-06 13:10] LABS: Anti-Centromere B Antibodies <0.2 AI (0.0-0.9); Anti-DNA (DS) Ab Qn <1 IU/mL (0-9); Anti-Jo-1 <0.2 AI (0.0-0.9); Anti-Smith Antibody <0.2 AI (0.0-0.9); Antichromatin Antibodies <0.2 AI (0.0-0.9); Antiscleroderma-70 Antibodies <0.2 AI (0.0-0.9); RA Latex Turbid. <10.0 IU/mL (<14.0); RNP Antibodies 2.9 AI (0.0-0.9); Sjogren's Anti-SS-A <0.2 AI (0.0-0.9); Sjogren's Anti-SS-B <0.2 AI (0.0-0.9)
[2023-04-06 14:30] LABS: EBV Nuclear Antigen Ab, IgG >600.0 U/mL (0.0-17.9)
[2023-04-06 18:19] LABS: H. pylori Breath Test Negative (Negative)
[2023-04-09 11:13] LABS: Estrogen 83 pg/mL (.)
== END 2023-04-05 23:59 ==
LOC: LAB 08:11
PROVIDERS: PCP Physician Assistant; Visit Provider Physician Assistant
DX: R11.0 Nausea (principal); R53.83 Other fatigue; E55.9 Vitamin D deficiency, unspecified; R79.89 Other specified abnormal findings of blood chemistry
CPT/HCPCS: 36415; 80053; 80061; 80074; 82306; 82607; 82672; 83001; 83002; 83013; 84144; 84403; 84436; 84443; 84479; 85025; 85651; 86140; 86225; 86235; 86431; 86664; 86665

== ENCOUNTER 2023-05-18 22:46 | Emergency (ER) | payer MEDICAID, SELFPAY ==
[2023-05-18 22:47] VITALS: BP 144/68; PULSE 60; RESP 16; TEMP 36.8; O2SAT 98; BMI 26.6
[2023-05-18 22:57] VITALS: BP 144/68; PULSE 60; RESP 18; O2SAT 98
[2023-05-18 23:00] VITALS: BP 159/93; PULSE 72; RESP 20; O2SAT 97
--- NOTE | 2023-05-18 23:16 | HMH.EDGENADL ---
Discharge Plan Disposition Patient Disposition: Home, Self-Care Prescriptions Prescriptions: New amoxicillin-pot clavulanate 875-125 mg tablet 1 tab PO BID 7 Days Qty: 14 0RF No Action varenicline [Chantix] 1 mg tablet 1 mg PO BID Qty: 60 1RF methadone 10 mg/mL concentrate 80 mg PO DAILY dicyclomine 10 mg capsule 10 mg PO TID Qty: 21 0RF trazodone 100 mg tablet 100 mg PO QHS Qty: 30 1RF cholecalciferol (vitamin D3) 1,250 mcg (50,000 unit) capsule 1,250 mcg PO WEEKLY Qty: 12 0RF ondansetron 4 mg tablet,disintegrating 4 mg PO Q8H PRN (Reason: nausea and vomiting) Qty: 16 0RF Trintellix 10 mg tablet 10 mg PO DAILY Qty: 30 1RF lorazepam [Ativan] 1 mg tablet 1 mg PO BID PRN (Reason: anxiety) Qty: 40 0RF ibuprofen 600 mg tablet 600 mg PO Q8H PRN (Reason: pain) Qty: 30 0RF Referrals Follow up/Referrals: Estephania Calloway PA [Primary Care Provider] - See instructions Activity Restrictions/Add. Instructions Additional Instructions/Restrictions: Please take amoxicillin as prescribed. Please follow-up with your dentist. please follow-up with your primary care provider. Please return to the emergency department if you develop any new or worsening symptoms or become concerned for your health. Clinical Impressions Clinical Impression: Pain, dental, Irreversible pulpitis Discharge ED Provider: Thierry Zarate Adult HPI General Chief complaint: PAIN Stated complaint: facial pain Time Seen by Provider: 05/18/23 23:00 Mode of Arrival: Ambulatory Source of Information: Patient Limitations: No Limitations Description of Symptoms (Recalled from ER Triage Doc. by RN): Pt states she was at the dentist 2 weeks ago d/t a bad upper tooth, given Amoxicillin for infection. Over the past couple days she has increased pain in her upper and lower gumline, left ear pain and left facial pain. History of Present Illness HPI narrative: 38-year-old female presents with left facial pain. She reports that she has been having issues with her left upper teeth for the last couple of weeks. She has been on amoxicillin and it got better initially but is now worse again. She is taking Tylenol and ibuprofen for pain. She is in the process of being evaluated by her dentist but they are working on her insurance approval. She denies any fever. She reports some pain in the area of her left maxillary sinus, but denies any purulent drainage, fever or significant pressure. Reports that the pain in her teeth radiates back towards her ear and into her lower jaw as well. She has a fractured left upper maxillary tooth. 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 05/29/20 03/24/23 Previous Rx's Medication Instructions Recorded ibuprofen 600 mg tablet 600 mg PO Q8H PRN pain #30 tabs 12/01/21 dicyclomine 10 mg capsule 10 mg PO TID #21 caps 03/16/22 varenicline 1 mg tablet (Chantix) 1 mg PO BID #60 tabs 02/11/23 trazodone 100 mg tablet 100 mg PO QHS #30 tabs 04/05/23 cholecalciferol (vitamin D3) 1,250 1,250 mcg PO WEEKLY vitamin d 04/07/23 mcg (50,000 unit) capsule deficiency #12 caps ondansetron 4 mg disintegrating 4 mg PO Q8H PRN nausea and 04/16/23 tablet vomiting #16 tabs vortioxetine 10 mg tablet 10 mg PO DAILY #30 tabs 04/22/23 (Trintellix) amoxicillin 875 mg-potassium 1 tab PO BID 7 days #14 tabs 05/18/23 clavulanate 125 mg tablet lorazepam 1 mg tablet (Ativan) 1 mg PO BID PRN anxiety #40 tabs 05/18/23 Allergies Allergy/AdvReac Type Severity Reaction Status Date / Time metoclopramide [From Reglan] Allergy Intermediate Verified 03/24/23 11:14 [facility] Disclaimer: The information contained in this section may have been updated after the patient was seen, as this information can be updated by other users. Medical History (Updated 05/18/23 @ 23:21 by Thierry Zarate MD) Cervical intraepithelial neoplasia (JACLYN) LGSIL on Pap smear of cervix History of substance abuse Depression Anxiety Surgical History History of appendectomy History of section, classical Family History Other Alcoholism Diabetes Hypertension Substance abuse Social History Smoking Status: Current every day smoker tobacco type: cigarettes packs per day: 1 second hand exposure: Yes alcohol intake: never substance use type: former substance user current occupational status: other Travel in the last 8 weeks: None household members: family housing: house number of children: 1 ROS Obtained: Yes All systems reviewed & no additional complaints except as documented Physical Exam General General appearance: alert and in no apparent distress Head Head exam: atraumatic and normocephalic Eye Eye exam: Present normal appearance, PERRL and EOMI ENT ENT exam: Present other (Patient has mostly absent left maxillary teeth, the 2 teeth that are present are fractured. No adjacent abscess is noted. No significant swelling of the face. Left TM is normal appearance, no significant lymphadenopathy.) Neck Neck exam: Present normal inspection and full ROM Chest Chest inspection: Present normal inspection and symmetric chest wall rise; Absent tenderness Respiratory Respiratory exam: Present normal lung sounds bilaterally; Absent respiratory distress Cardiovascular Cardiovascular exam: Present regular rate and normal rhythm Abdominal Exam Abdominal exam: Present soft; Absent distention, tenderness or guarding Extremities Exam Extremities exam: Present normal inspection; Absent edema or joint swelling Back Exam Back exam: Present normal inspection; Absent tenderness Neurological Exam Neurological exam: Present alert and oriented X3; Absent motor sensory deficit Psychiatric Psychiatric exam: Present normal affect and normal mood Skin Skin exam: Present warm, dry and normal color Lymphatic Lymphatic Findings: no adenopathy Medical Decision Making Medical Records Medical records reviewed: Yes I reviewed the patient's medical records. Nadir Inquiry Pt receiving controlled substance: No Nadir was queried for this patient: No Vital Signs: 05/18/23 22:47 05/18/23 22:57 05/18/23 23:00 Temperature 98.2 F Temperature Source Oral Pulse Rate 60 72 Pulse Rate [Left] 60 Respiratory Rate 16 18 20 Blood Pressure 144/68 H 159/93 H Blood Pressure [Right Arm] 144/68 H Blood Pressure Mean 93 115 Blood Pressure Mean [Right Arm] 93 Blood Pressure Source [Right Arm] Automatic Cuff Blood Pressure Position [Right Arm] Sitting 02 Sat by Pulse Oximetry 98 98 97 Oxygen Delivery Method Room Air Room Air Room Air Lab Data Lab results reviewed: Yes I reviewed the patient's lab results. Orders (Tests/Meds): ED MEDICATIONS Discontinued Medications Generic Name Dose Route Start Last Admin Trade Name Keysha PRN Reason Stop Dose Admin Amoxicillin/Clavulanate Potassium 1 each 05/18/23 23:15 05/18/23 23:20 Amoxicillin/Clavulanate Potassium 875/125mg Tablet PO 05/18/23 23:16 1 each ONCE ONE Administration Lidocaine/Epinephrine 5 ml 05/18/23 23:15 05/18/23 23:22 Lidocaine 2% W/Epi 1:100,000 20ml Vial IJ 05/18/23 23:16 5 ml ONCE ONE Administration Medical Decision Narrative: 38-year-old female presents with left facial/dental pain. History was obtained interactive discussion with patient. On arrival, patient is [afebrile, hemodynamically stable, satting appropriately, alert, oriented x4, GCS 15], moving all extremities spontaneously. Full physical exam performed and significant for fractured left maxillary teeth without significant surrounding evidence of infection Differential includes but is not limited to pulpitis, odontogenic infection, sinus infection, ear infection, invasive facial infection. CT scan of the face was considered, but not performed since physical exam is not consistent with a severe/invasive infection at this time. Patient was given Augmentin to begin taking instead of amoxicillin. She was given a dental block with complete resolution of her pain. She will follow-up with her dentist in the morning. Patient discharged in stable condition. 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 Procedures Risk/Benefits of Procedure(s) Were Explained: Yes Nerve Block Nerve Block 1: Time out performed: Yes Local Anesthetic: lidocaine 2% and with epi Amount of anesthesia used (mL): 5 Side: Left Intraoral Nerve Block: superior alveolar and infraorbital Procedure Successful: Yes Patient Tolerated Procedure: well and no complications Critical Care Critical Care Time Critical Care Time: No
[2023-05-18] MEDS: AMOXICILLIN/CLAVULANATE POTASSIUM 875/125MG TABLET 1 EACH PO (23:20)
[2023-05-18] MEDS: LIDOCAINE 2% W/EPI 1:100,000 20ML VIAL 5 ML IJ (23:22)
[2023-05-18 23:33] VITALS: BP 144/68; PULSE 60; RESP 18; TEMP 36.8; O2SAT 98
== END 2023-05-18 23:37 | disposition home or self-care (01) ==
PROVIDERS: Emergency Provider Emergency Medicine; PCP Physician Assistant
DX: K04.02 Irreversible pulpitis (principal); K08.89 Other specified disorders of teeth and supporting structures; F17.210 Nicotine dependence, cigarettes, uncomplicated
CPT/HCPCS: 99283

== ENCOUNTER 2023-08-04 02:12 | Emergency (ER) | payer MEDICAID, SELFPAY ==
[2023-08-04 02:14] VITALS: BP 135/71; PULSE 68; RESP 18; TEMP 36.6; O2SAT 97; BMI 25.0
--- NOTE | 2023-08-04 02:23 | XR_ITS ---
PROCEDURE INFORMATION: Exam: XR Chest Exam date and time: 08/04/2023 2:19 AM Age: 38 years old Clinical indication: Cough; Additional info: Cough >1 wk TECHNIQUE: Imaging protocol: Radiologic exam of the chest. Views: 2 views. COMPARISON: CT ANGIO CHEST PE PROTOCOL 12/01/2021 8:50 AM FINDINGS: Lungs: Unremarkable. No consolidation. Pleural spaces: Unremarkable. No pleural effusion. No pneumothorax. Heart/Mediastinum: Unremarkable. No cardiomegaly. Vasculature: Unremarkable. Bones/joints: Unremarkable. IMPRESSION: No acute findings.
--- NOTE | 2023-08-04 02:23 | HMH.EDGENADL ---
Discharge Plan Disposition Patient Disposition: Home, Self-Care Condition: Good Prescriptions Prescriptions: New cleepmkqurifyxu-bcfjzzucm-ER [Bromfed DM] 2-30-10 mg/5 mL syrup 5 ml PO Q6H PRN (Reason: cold symptoms) Qty: 118 0RF fluticasone propionate 50 mcg/actuation spray,suspension 1 spray intranasal BID Qty: 16 0RF Rx Instructions: administer into each nostril cetirizine [Zyrtec] 10 mg tablet 10 mg PO DAILY Qty: 30 0RF No Action varenicline [Chantix] 1 mg tablet 1 mg PO BID Qty: 60 1RF methadone 10 mg/mL concentrate 80 mg PO DAILY dicyclomine 10 mg capsule 10 mg PO TID Qty: 21 0RF lorazepam [Ativan] 1 mg tablet 1 mg PO BID PRN (Reason: anxiety) Qty: 40 0RF trazodone 100 mg tablet 100 mg PO QHS Qty: 30 1RF methylprednisolone [Medrol (Zbigniew)] 4 mg tablets,dose pack See Rx Instructions PO PER PKG DIR Qty: 21 0RF Rx Instructions: PO PER PKG DIR amoxicillin 500 mg capsule 500 mg PO BID 10 Days Qty: 20 0RF ondansetron 4 mg tablet,disintegrating 4 mg PO Q12H PRN (Reason: nausea and vomiting) Qty: 30 1RF cholecalciferol (vitamin D3) 1,250 mcg (50,000 unit) capsule 1,250 mcg PO WEEKLY Qty: 12 0RF Trintellix 10 mg tablet 10 mg PO DAILY Qty: 30 1RF ibuprofen 600 mg tablet 600 mg PO Q8H PRN (Reason: pain) Qty: 30 0RF Referrals Follow up/Referrals: Estephania Calloway PA [Primary Care Provider] - See instructions Activity Restrictions/Add. Instructions Additional Instructions/Restrictions: You were evaluated in the emergency department today. Please continue taking your medications prescribed by your primary care provider at home. Take Tylenol and ibuprofen at home every 4-6 hours as needed for pain and/or fever. 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 These may help with your symptoms. It is important to note that your cough may last for 6+ weeks. Return to the emergency department for new or significantly worsening symptoms. Clinical Impressions Clinical Impression: Cough Stand Alone Forms Stand Alone Forms: Work/School Release Instructions Patient Instructions: DI for Cough -- Adult, DI for Acute Bronchitis Discharge ED Provider: Leigh Galeas General Adult HPI General Chief complaint: Upper Respiratory Infection Stated complaint: severe cough Time Seen by Provider: 08/04/23 02:14 History of Present Illness HPI narrative: This patient is a 38-year-old female with history of tobacco use and anxiety presenting to the emergency department for evaluation with concern for cough. Patient notes hacking cough for over a week now. She saw her primary care provider 08/02/2023 for this and was given IM steroids, IM Rocephin, Medrol Dosepak, oral amoxicillin, and a Z-Zbigniew for bronchitis. She states that the cough is still been persistent and is keeping her from sleeping. No other concerns noted at this time. 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 05/29/20 08/02/23 Previous Rx's Medication Instructions Recorded ibuprofen 600 mg tablet 600 mg PO Q8H PRN pain #30 tabs 12/01/21 dicyclomine 10 mg capsule 10 mg PO TID #21 caps 03/16/22 varenicline 1 mg tablet (Chantix) 1 mg PO BID #60 tabs 02/11/23 cholecalciferol (vitamin D3) 1,250 1,250 mcg PO WEEKLY vitamin d 04/07/23 mcg (50,000 unit) capsule deficiency #12 caps lorazepam 1 mg tablet (Ativan) 1 mg PO BID PRN anxiety #40 tabs 06/07/23 trazodone 100 mg tablet 100 mg PO QHS #30 tabs 06/07/23 amoxicillin 500 mg capsule 500 mg PO BID 10 days #20 caps 08/02/23 methylprednisolone 4 mg tablets in See Rx Instructions PO PER PKG DIR 08/02/23 a dose pack (Medrol (Zbigniew)) #21 tabs ondansetron 4 mg disintegrating 4 mg PO Q12H PRN nausea and 08/02/23 tablet vomiting #30 tabs vortioxetine 10 mg tablet 10 mg PO DAILY #30 tabs 08/02/23 (Trintellix) sjqnkxrkwzcmzdj-jkkrukmcnyrbhnk-DW 5 ml PO Q6H PRN cold symptoms #118 08/04/23 2 mg-30 mg-10 mg/5 mL oral syrup mL (Bromfed DM) cetirizine 10 mg tablet (Zyrtec) 10 mg PO DAILY #30 tabs 08/04/23 fluticasone propionate 50 1 spray intranasal BID #16 grams 08/04/23 mcg/actuation nasal spray,suspension Allergies Allergy/AdvReac Type Severity Reaction Status Date / Time metoclopramide [From Reglan] Allergy Intermediate Verified 08/02/23 14:15 [facility] Disclaimer: The information contained in this section may have been updated after the patient was seen, as this information can be updated by other users. Medical History Cervical intraepithelial neoplasia (JACLYN) LGSIL on Pap smear of cervix History of substance abuse Depression Anxiety Surgical History History of appendectomy History of section, classical Family History Other Alcoholism Diabetes Hypertension Substance abuse Social History Smoking Status: Current every day smoker tobacco type: cigarettes packs per day: 1 second hand exposure: Yes alcohol intake: never substance use type: former substance user current occupational status: other Travel in the last 8 weeks: None household members: family housing: house number of children: 1 ROS Obtained: Yes All systems reviewed & no additional complaints except as documented Physical Exam General General appearance: alert and in no apparent distress Head Head exam: atraumatic and normocephalic Eye Eye exam: Present normal appearance, PERRL and EOMI ENT ENT exam: Present normal exam, normal oropharynx, mucous membranes moist and normal external ear exam Neck Neck exam: Present normal inspection, full ROM and trachea midline; Absent tenderness Chest Chest inspection: Present normal inspection and symmetric chest wall rise; Absent tenderness Respiratory Respiratory exam: Present other (Bilateral rhonchi noted, right greater than left); Absent respiratory distress, wheezes, stridor or accessory muscle use Cardiovascular Cardiovascular exam: Present regular rate and normal rhythm Abdominal Exam Abdominal exam: Present soft; Absent distention, tenderness or guarding Extremities Exam Extremities exam: Present normal inspection, full ROM and normal capillary refill; Absent tenderness or edema Back Exam Back exam: Present normal inspection and full ROM; Absent tenderness Neurological Exam Neurological exam: Present alert, oriented X3, CN II-XII intact and normal gait; Absent motor sensory deficit Psychiatric Psychiatric exam: Present normal affect and normal mood Skin Skin exam: Present warm and dry Medical Decision Making Medical Records Medical records reviewed: Yes I reviewed the patient's medical records. Nadir Inquiry Pt receiving controlled substance: No Vital Signs: 08/04/23 02:14 Temperature 97.9 F Temperature Source Oral Pulse Rate [Left] 68 Respiratory Rate 18 Blood Pressure [Right Arm] 135/71 Blood Pressure Mean [Right Arm] 92 02 Sat by Pulse Oximetry 97 Oxygen Delivery Method Room Air Lab Data Lab results reviewed: Yes I reviewed the patient's lab results. Orders (Tests/Meds): ORDERS Category Date Time Status CXR 2 view (NOT portable) [XR chest 2V] Stat Exams 08/04/23 02:23 Taken Medical Decision Narrative: In summary, this patient is a 38-year-old female presenting to the Emergency Department for evaluation of cough greater than 1 week. Differential diagnoses considered include but are not limited to pneumonia, viral syndrome, COPD, asthma, respiratory failure. Ruling out the most morbid conditions drove assessment. It should be noted patient's history includes tobacco use which is not at goal therapy. This complicates all aspects of care by increasing patient's risk for morbidity. I reviewed patient's past medical records and noted elevation by her PCP 2 days ago and prescriptions as per HPI. On exam, the patient is well-appearing. She has no increased work of breathing. She does have bilateral rhonchi noted. She is already currently on appropriate treatment for outpatient pneumonia. She has a 2 view chest x-ray ordered by her PCP, and she is requesting to get this at this time. 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 She would like to proceed anyway. 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 Workup included 2 view chest x-ray. I independently interpreted x-ray prior to the radiologist read and noted no acute focal consolidation concerning for pneumonia. Please see their read for final interpretation. On reassessment, the patient is resting comfortably. Patient has normal vital signs on cardiac telemetry. Given reassuring workup and exam, I feel that she is appropriate for discharge home with instructions for supportive management of URI. She already has antibiotics and steroids prescribed by her PCP. I did prescribe her Bromfed as well as Flonase and Zyrtec to help alleviate her symptoms. She was given very strict return precautions and was discharged after all questions were answered. Critical Care Critical Care Time Critical Care Time: No
[2023-08-04 02:38] VITALS: BP 135/71; PULSE 68; RESP 18; TEMP 36.6; O2SAT 97
== END 2023-08-04 02:42 | disposition home or self-care (01) ==
PROVIDERS: Emergency Provider Emergency Medicine; PCP Physician Assistant
DX: R05.1 Acute cough (principal); F17.210 Nicotine dependence, cigarettes, uncomplicated
CPT/HCPCS: 71046; 99283

== ENCOUNTER 2023-11-19 08:29 | Outpatient (CLI) | payer MEDICAID, SELFPAY ==
--- NOTE | 2023-11-19 08:36 | US_ITS ---
FINAL REPORT CLINICAL HISTORY: abdominal bloating, n/v, pain FINDINGS: ULTRASOUND ABDOMEN The liver is unremarkable. Spleen has a normal sonographic appearance. No abnormality of the gallbladder is seen. No biliary ductal dilatation is identified. Kidneys show no evidence of mass or obstruction. Pancreas is not well visualized. IVC and aorta are grossly unremarkable. There is no obvious fluid collection. IMPRESSION: Unremarkable abdominal ultrasound. Reviewed, Interpreted and Dictated by Tyree Morales MD Transcribed by Maya Burrell Authenticated and [facility]
== END 2023-11-19 23:59 | disposition home or self-care (01) ==
LOC: RAD 08:30
PROVIDERS: PCP Family Medicine; Visit Provider Family Medicine
DX: R14.0 Abdominal distension (gaseous) (principal); R53.83 Other fatigue; R19.7 Diarrhea, unspecified; R11.2 Nausea with vomiting, unspecified
CPT/HCPCS: 76700

== ENCOUNTER 2024-05-17 17:38 | Emergency (ER) | payer MEDICAID, SELFPAY ==
[2024-05-17 17:56] VITALS: BP 135/68; PULSE 82; RESP 16; TEMP 36.9; O2SAT 98; BMI 24.3
--- NOTE | 2024-05-17 18:22 | ED_ITS ---
<Statement entered by Deion Ryder MD - 05/17/24 21:49> I was consulted by the KIKE, and we discussed the complexity of the problems being addressed. I approved the treatment and management plan for this patient's care in the emergency department, thus performing a substantive portion of the medical decision making. Deion Ryder MD Discharge Plan Disposition Patient Disposition: Home, Self-Care Prescriptions Prescriptions: New methocarbamol 750 mg tablet 750 mg PO Q6H PRN (Reason: muscle spasm) Qty: 20 0RF lidocaine 5 % adhesive patch,medicated 1 patch topical DAILY Qty: 30 0RF Rx Instructions: leave on most painful area for up to 12 hrs No Action ondansetron 4 mg tablet,disintegrating 4 mg PO Q12H PRN (Reason: nausea and vomiting) Qty: 30 1RF methadone 10 mg/mL concentrate 80 mg PO DAILY varenicline tartrate [Chantix] 0.5 mg tablet 0.5 mg PO DAILY Qty: 30 0RF Rx Instructions: administer on days 1, 2, and 3 of therapy propranolol 10 mg tablet 10 mg PO TID Qty: 90 0RF lorazepam [Ativan] 1 mg tablet 1 mg PO BID PRN (Reason: anxiety) Qty: 40 0RF trazodone 100 mg tablet 100 mg PO QHS Qty: 30 1RF Trintellix 10 mg tablet 10 mg PO DAILY Qty: 30 1RF Referrals Follow up/Referrals: Provider,Referral, [Primary Care Provider] - See instructions Activity Restrictions/Add. Instructions Additional Instructions/Restrictions: I have sent a prescription for muscle relaxer and the topical numbing patch into your pharmacy. I recommend taking 1000 mg of Tylenol alternating every 4 hours with 800 mg of ibuprofen with food for supportive and symptomatic care. If you have any continued new or worsening signs or symptoms follow-up with your PCP return to the ER as needed. Clinical Impressions Clinical Impression: Fall Qualifiers: Encounter type: initial encounter Qualified Code(s): W19.XXXA - Unspecified f all, initial encounter Chest wall contusion Qualifiers: Encounter type: initial encounter Laterality: left Qualified Code(s): S20.212A - Contusion of left front wall of thorax, initial encounter Print Language Print Language: Mauritian Discharge ED Provider: Deion Ryder General Adult HPI General Chief complaint: Fall Stated complaint: [id number] fall pain on breathing Time Seen by Provider: 05/17/24 18:22 Mode of Arrival: Ambulatory Source of Information: Patient Description of Symptoms (Recalled from ER Triage Doc. by RN): Patient reports fall from standing position onto left side of back. Patient reports sharp pain with inspiration and movement. History of Present Illness HPI narrative: Patient presents for evaluation of a fall. Patient was walking through her house and slipped and fell backwards landing on her left posterior back. She did not lose consciousness and was actually able to get up on her own. She had video that she showed me of the event. Patient reports that she has had pain particularly with deep breaths but denies loss of consciousness head pain neck pain back pain other than the area that was struck on the ground. She denies any hip pain she is neurovascular intact in all 4 extremities has no focal neurologic deficits denies shortness of breath fever chills hemoptysis hematochezia melena nausea vomit diarrhea. Related Data Home Medications ?Medication ?Instructions ?Recorded ?Confirmed methadone 10 mg/mL oral concentrate 80 mg PO DAILY addiction 05/29/20 05/17/24 Previous Rx's ?Medication ?Instructions ?Recorded ondansetron 4 mg disintegrating 4 mg PO Q12H PRN nausea and 02/11/24 tablet vomiting #30 tabs lorazepam 1 mg tablet (Ativan) 1 mg PO BID PRN anxiety #40 tabs 04/19/24 trazodone 100 mg tablet 100 mg PO QHS #30 tabs 04/19/24 vortioxetine 10 mg tablet 10 mg PO DAILY #30 tabs 04/19/24 (Trintellix) propranolol 10 mg tablet 10 mg PO TID #90 tabs 05/16/24 varenicline tartrate 0.5 mg tablet 0.5 mg PO DAILY #30 tabs 05/16/24 (Chantix) lidocaine 5 % topical patch 1 patch topical DAILY #30 ea 05/17/24 methocarbamol 750 mg tablet 750 mg PO Q6H PRN muscle spasm #20 05/17/24 tabs Allergies Allergy/AdvReac Type Severity Reaction Status Date / Time metoclopramide (From Reglan) Allergy Intermediate Verified 05/15/24 09:07 [facility] Disclaimer: The information contained in this section may have been updated after the patient was seen, as this information can be updated by other users. Medical History LGSIL on Pap smear of cervix Cervical intraepithelial neoplasia (JACLYN) History of substance abuse Depression Anxiety Surgical History History of appendectomy History of section, classical Family History Other Alcoholism Diabetes Hypertension Substance abuse Social History Smoking Status: Never smoker second hand exposure: Yes alcohol intake: never substance use type: former substance user current occupational status: other Travel in the last 8 weeks: None household members: family housing: house number of children: 1 Have you lived/traveled outside [place] in past 30 days?: No Contact w/someone who lives/traveled outside [place] past 30 days?: No Exposure to someone with infectious disease in past 14 days?: No Do you have a fever (greater than 100.4 F or 38 C)?: No Have you tested positive for COVID-19: No Exposed to someone with COVID-19 in past 14 days?: No Do you have a sore throat?: No Do you have a cough?: No Do you have any weakness?: No Do you have any diarrhea?: No Are you experiencing any unusual bleeding?: No Do you have any muscle aches/pain?: No Do you have any abdominal pain?: No Are you experiencing loss of taste or smell?: No Other Medical History Have you received the Flu Vaccine for this season: No Have you received the Pneumonia Vaccine: No ROS Obtained: Yes Systems reviewed as appropriate & no additional complaints except as documented Physical Exam General General appearance: alert and in no apparent distress Respiratory Respiratory exam: Present normal lung sounds bilaterally Cardiovascular Cardiovascular exam: Present regular rate Neurological Exam Neurological exam: Present alert and oriented X3 Medical Decision Making Medical Records Medical records reviewed: Yes I reviewed the patient's medical records. Screening: Per USPSTF and CDC recommendations, given the prevalence of disease in our region, it is our hospital?s policy to screen for HIV and viral Hepatitis for all patients aged 18 and over and those with ongoing risk factors. Nadir Inquiry Pt receiving controlled substance: No Vital Signs: 05/17/24 17:56 Temperature 98.5 F Temperature Source Oral Pulse Rate [Right] 82 Respiratory Rate 16 Blood Pressure [Right Arm] 135/68 Blood Pressure Mean [Right Arm] 90 02 Sat by Pulse Oximetry 98 Orders (Tests/Meds): ED MEDICATIONS Discontinued Medications Generic Name Dose Route Start Last Admin Trade Name Keysha PRN Reason Stop Dose Admin Acetaminophen 1,000 mg 05/17/24 18:29 05/17/24 18:37 Acetaminophen 500mg Tab PO 05/17/24 18:30 1,000 mg ONCE ONE Administration Lidocaine 1 each 05/17/24 18:29 05/17/24 18:37 Lidocaine 5% Transdermal Patch TD 05/17/24 18:30 1 each ONCE ONE Administration Oxycodone HCl 5 mg 05/17/24 18:29 05/17/24 18:38 Oxycodone 5mg Immediate Release Tablet PO 05/17/24 18:30 5 mg ONCE ONE Administration ORDERS Category Date Time Status CT cervical spine wo con Stat Cat Scan 05/17/24 18:[address] chest wo con Stat Cat Scan 05/17/24 18:[address] head/brain wo con Stat Cat Scan 05/17/24 18:[address] lumbar spine wo con Stat Cat Scan 05/17/24 18:[address] thoracic spine wo con Stat Cat Scan 05/17/24 18:30 Taken HIV Combo Routine Lab 05/17/24 18:13 Ordered Hepatitis C Ab Qual. W/ RFX Routine Lab 05/17/24 18:13 Ordered Urine , HCG Qual. Stat Lab 05/17/24 18:34 Ordered Medical Decision Narrative: In summary patient is a 39-year-old female who presents to the emergency department for evaluation of fall and left posterior thoracic pain. Patient is hemodynamically stable upon arrival, afebrile. Physical exam is remarkable for clear breath sounds with no increased work of breathing repetitious sounds, there is no evidence of ecchymosis edema induration palpable bony deformity. Patient has good excursion. There is no midline dorsal spine tenderness. Pupils equal round reactive to light, Nikolai Coma Score 15 patient is awake alert and oriented. Patient moves all 4 extremities without focal neurologic deficit and is neurovascular intact distally in all 4 extremities.. Differential diagnosis includes rib fracture versus contusion versus pulmonary contusion versus occult spinal fracture versus closed head injury etc. Initial workup will be conducted with noncontrasted CT scans of the head dorsal spine and chest without contrast. Initial interventions include Tylenol and Lidoderm for now. Initial workup reviewed by me and my informal interpretation of her imaging shows no acute fracture or process prior to radiology read. Please see formal final read for official report. Upon repeat evaluation patient asked reports significant improvement after initial intervention. Given this patient is appropriate for discharge with prescription for Lidoderm and Robaxin and instructions to continue taking Tylenol alternating with Motrin for supportive and symptomatic care and strict return precautions. Critical Care Critical Care Time Critical Care Time: No
--- NOTE | 2024-05-17 18:29 | CT_ITS ---
PROCEDURE INFORMATION: Exam: CT Chest Without Contrast; Diagnostic Exam date and time: 05/17/2024 6:47 PM Age: 39 years old Clinical indication: Injury or trauma; Fall; Blunt trauma (contusions or hematomas); Additional info: Fall, left posterior chest wall pain TECHNIQUE: Imaging protocol: Diagnostic computed tomography of the chest without contrast. Radiation optimization: All CT scans at this facility use at least one of these dose optimization techniques: automated exposure control; mA and/or kV adjustment per patient size (includes targeted exams where dose is matched to clinical indication); or iterative reconstruction. COMPARISON: CT ANGIO CHEST PE PROTOCOL 12/01/2021 8:50 AM FINDINGS: Lungs: Right upper lobe calcified nodule compatible with prior granulomatous process. Pleural spaces: Unremarkable. No pneumothorax. No pleural effusion. Heart: Unremarkable. No cardiomegaly. No pericardial effusion. Coronary arteries: No calcific atherosclerotic disease of the coronary arteries. Lymph nodes: Right hilar and subcarinal calcified nodes compatible with prior granulomatous process. Vasculature: Unremarkable. No aortic aneurysm. Spleen: Multiple benign-appearing calcific densities of the spleen. Bones/joints: Unremarkable. No acute fracture. Soft tissues: Unremarkable. IMPRESSION: No acute findings.
--- NOTE | 2024-05-17 18:30 | CT_ITS ---
PROCEDURE INFORMATION: Exam: CT Head Without Contrast Exam date and time: 05/17/2024 6:40 PM Age: 39 years old Clinical indication: Injury or trauma; Fall; Blunt trauma (contusions or hematomas); Without loss of consciousness; Additional info: Trauma, critical injury suspected TECHNIQUE: Imaging protocol: Computed tomography of the head without contrast. Radiation optimization: All CT scans at this facility use at least one of these dose optimization techniques: automated exposure control; mA and/or kV adjustment per patient size (includes targeted exams where dose is matched to clinical indication); or iterative reconstruction. COMPARISON: CT HEAD/BRAIN WO CON 05/17/2024 6:40 PM FINDINGS: Limitations: Photon starvation and beam hardening artifact from patient's earrings severely degrades images, limiting visualization of surrounding structures. Brain: No acute intracranial hemorrhage. No intra- or extra-axial fluid collection. No mass effect or midline shift. Cerebral ventricles: No hydrocephalus. Paranasal sinuses: No air fluid levels in the visualized paranasal sinuses. Mastoid air cells: Visualized mastoid air cells are clear. Bones: No evidence of acute calvarial or skull base fracture. Soft tissues: Unremarkable. IMPRESSION: No evidence of acute intracranial abnormality.
--- NOTE | 2024-05-17 18:30 | CT_ITS ---
PROCEDURE INFORMATION: Exam: CT Lumbar Spine Without Contrast Exam date and time: 05/17/2024 6:43 PM Age: 39 years old Clinical indication: Injury or trauma; Fall; Blunt trauma (contusions or hematomas); Additional info: Trauma, critical injury suspected TECHNIQUE: Imaging protocol: Computed tomography of the lumbar spine without contrast. Radiation optimization: All CT scans at this facility use at least one of these dose optimization techniques: automated exposure control; mA and/or kV adjustment per patient size (includes targeted exams where dose is matched to clinical indication); or iterative reconstruction. COMPARISON: CT THORACIC SPINE WO CON 05/17/2024 6:43 PM FINDINGS: Bones/joints: Mild loss of intervertebral disc space with degenerative changes involving L1 through S1. The vertebral bodies are maintained in height and alignment. No evidence of acute osseous abnormality. Soft tissues: Unremarkable. IMPRESSION: No evidence of acute osseous abnormality.
--- NOTE | 2024-05-17 18:30 | CT_ITS ---
PROCEDURE INFORMATION: Exam: CT Thoracic Spine Without Contrast Exam date and time: 05/17/2024 6:43 PM Age: 39 years old Clinical indication: Injury or trauma; Fall; Blunt trauma (contusions or hematomas); Additional info: Trauma, critical injury suspected TECHNIQUE: Imaging protocol: Computed tomography of the thoracic spine without contrast. Radiation optimization: All CT scans at this facility use at least one of these dose optimization techniques: automated exposure control; mA and/or kV adjustment per patient size (includes targeted exams where dose is matched to clinical indication); or iterative reconstruction. COMPARISON: CT ANGIO CHEST PE PROTOCOL 12/01/2021 8:50 AM FINDINGS: Bones/joints: No acute fracture. Normal alignment. No significant disc bulge or herniation. No severe spinal canal stenosis. No significant neural foraminal narrowing. Soft tissues: Unremarkable. IMPRESSION: Unremarkable CT Spine.
--- NOTE | 2024-05-17 18:30 | CT_ITS ---
PROCEDURE INFORMATION: Exam: CT Cervical Spine Without Contrast Exam date and time: 05/17/2024 6:43 PM Age: 39 years old Clinical indication: Injury or trauma; Fall; Blunt trauma; Additional info: Trauma, critical injury suspected TECHNIQUE: Imaging protocol: Computed tomography of the cervical spine without contrast. Radiation optimization: All CT scans at this facility use at least one of these dose optimization techniques: automated exposure control; mA and/or kV adjustment per patient size (includes targeted exams where dose is matched to clinical indication); or iterative reconstruction. COMPARISON: CT HEAD/BRAIN WO CON 05/17/2024 6:40 PM FINDINGS: Bones: No evidence of acute fracture or malalignment. Lungs: No acute abnormality or suspicious mass lesion in the visualized lung apices. Soft tissues: Unremarkable. IMPRESSION: No evidence of acute osseous abnormality in the cervical spine.
[2024-05-17] MEDS: LIDOCAINE 5% TRANSDERMAL PATCH 1 EACH TD (18:37)
[2024-05-17] MEDS: ACETAMINOPHEN 500MG TAB 1000 MG PO (18:37)
[2024-05-17] MEDS: OXYCODONE 5MG IMMEDIATE RELEASE TABLET 5 MG PO (18:38)
[2024-05-17 20:11] VITALS: BP 132/73; PULSE 74; RESP 18; TEMP 36.3; O2SAT 100
== END 2024-05-17 20:16 | disposition home or self-care (01) ==
PROVIDERS: Emergency Provider Emergency Medicine
DX: S20.212A Contusion of left front wall of thorax, initial encounter (principal); W19.XXXA Unspecified fall, initial encounter
CPT/HCPCS: 70450; 71250; 72125; 72128; 72131; 99285

== ENCOUNTER 2024-09-21 12:32 | Emergency (ER) | payer MEDICAID, SELFPAY ==
[2024-09-21 13:29] VITALS: BP 150/84; PULSE 75; O2SAT 98
--- NOTE | 2024-09-21 13:30 | ED_ITS ---
Discharge Plan Disposition Patient Disposition: Home, Self-Care Condition: Good Prescriptions Prescriptions: No Action ondansetron 4 mg tablet,disintegrating 4 mg PO Q12H PRN (Reason: nausea and vomiting) Qty: 30 1RF fluconazole 150 mg tablet 150 mg PO Q3D Qty: 2 0RF ondansetron 4 mg tablet,disintegrating 4 mg PO Q12H PRN (Reason: nausea and vomiting) Qty: 10 0RF methadone 10 mg/mL concentrate 80 mg PO DAILY Trintellix 10 mg tablet 10 mg PO DAILY Qty: 30 1RF varenicline tartrate [Chantix] 0.5 mg tablet 0.5 mg PO BID Qty: 60 1RF lorazepam [Ativan] 1 mg tablet 1 mg PO BID PRN (Reason: anxiety) Qty: 40 0RF trazodone 100 mg tablet 100 mg PO QHS Qty: 30 1RF Referrals Follow up/Referrals: Caprice Carrasco DO [Staff Physician, ENVIRONMENTAL MARKETING REPRESENTATIVE] - See instructions Provider,Referral, MD [Primary Care Provider, Medical] - See instructions Activity Restrictions/Add. Instructions Additional Instructions/Restrictions: Please follow-up in your ENVIRONMENTAL MARKETING REPRESENTATIVE's office next week for repeat ultrasound, monitor for any worsening vaginal bleeding that soaked through multiple pads in an hour, I recommend rest ice ibuprofen Tylenol, Zofran as needed for pain and nausea. Please return to the emergency department with any worsening signs or symptoms, to also include persistent nausea vomiting abdominal pain fever or chills. Continue to take all your at home medications as prescribed. Clinical Impressions Clinical Impression: Cyst of left ovary, Abnormal vaginal bleeding Instructions Patient Instructions: Ovarian Cyst, DI for Abnormal Uterine Bleeding Print Language Print Language: Lao Discharge ED Provider: Jose Sierra Adult HPI <ABRAHAM Eubanks - Last Filed: 09/21/24 16:11> General Chief complaint: Vaginal Bleeding Stated complaint: vaginal bleeding,nausea,bloating Time Seen by Provider: 09/21/24 13:29 Mode of Arrival: Ambulatory Source of Information: Patient Limitations: No Limitations History of Present Illness HPI narrative: 39-year-old G1, female presents to the emergency department with abnormal vaginal bleeding, onset of menstrual cycle, last menstrual cycle was 1 week ago, patient started having was started as spotting , 3 to 4 days ago, starting on, 09/17/2024, has now progressed to soaking through a pad, patient also complains of bloating, chronic nausea, for quite some times, as well as fatigue, that is worsened within the last 1 to 2 weeks, she also endorses night sweats , in the last 1 to 2 weeks. Patient denies any fever, no chills no chest pain no shortness of breath, no vomiting, no constipation no diarrhea, no urinary symptomatology, vaginal discharge, she is unsure if she could be , or not, she is not on any oral contraceptives, patient is a current everyday smoker, denies any alcohol or drug use. Other past medical history is consistent with LGSIL on Pap smear the cervix, chronic bloating and nausea, anxiety, depression, vitamin D deficiency, prior history of substance abuse currently on methadone therapy. Initial triage vitals are unremarkable. Onset (ago): day(s) Related Data Home Medications ?Medication ?Instructions ?Recorded ?Confirmed methadone 10 mg/mL oral concentrate 80 mg PO DAILY add iction 05/29/20 09/01/24 Previous Rx's ?Medication ?Instructions ?Recorded ondansetron 4 mg disintegrating 4 mg PO Q12H PRN nause a and 02/11/24 tablet vomiting #30 tabs varenicline tartrate 0.5 mg tablet 0.5 mg PO BID #60 t abs 07/25/24 (Chantix) vortioxetine 10 mg tablet 10 mg PO DAILY #30 tabs 05/16 (Trintellix) fluconazole 150 mg tablet 150 mg PO Q3D 2 doses #2 tab s 09/01/24 ondansetron 4 mg disintegrating 4 mg PO Q12H PRN nause a and 09/01/24 tablet vomiting #10 tabs lorazepam 1 mg tablet (Ativan) 1 mg PO BID PRN anxiety #40 tabs 09/06/24 trazodone 100 mg tablet 100 mg PO QHS #30 tabs 09/07 Allergies Allergy/AdvReac Type Severity Reaction Status Date / Time metoclopramide (From Reglan) Allergy Intermediate Other Verified 09/21/24 13:36 PFS <ABRAHAM Eubanks - Last Filed: 09/21/24 16:11> PFS Disclaimer: The information contained in this section may have been updated after the patient was seen, as this information can be updated by other users. Medical History LGSIL on Pap smear of cervix Cervical intraepithelial neoplasia (JACLYN) History of substance abuse Depression Anxiety Surgical History History of appendectomy History of section, classical Family History Other Alcoholism Diabetes Hypertension Substance abuse Social History Smoking Status: Current every day smoker tobacco type: cigarettes packs per day: 1 second hand exposure: Yes alcohol intake: never substance use type: former substance user current occupational status: other Travel in the last 8 weeks?: None household members: family housing: house number of children: 1 Other Medical History Have you received the Flu Vaccine for this season: No Have you received the Pneumonia Vaccine: No <ABRAHAM Eubanks - Last Filed: 09/21/24 16:11> ROS Obtained: Yes All systems reviewed & no additional complaints except as documented Physical Exam <ABRAHAM Eubanks - Last Filed: 09/21/24 16:11> General General appearance: alert and in no apparent distress Head Head exam: atraumatic and normocephalic Eye Eye exam: Present PERRL and EOMI ENT ENT exam: Present mucous membranes moist Neck Neck exam: Present normal inspection Chest Chest inspection: Present normal inspection and symmetric chest wall rise Respiratory Respiratory exam: Present normal lung sounds bilaterally; Absent respiratory distress Cardiovascular Cardiovascular exam: Present regular rate and normal rhythm Abdominal Exam Abdominal exam: Present soft and distention; Absent tenderness, guarding, rebound or rigidity Extremities Exam Extremities exam: Present normal inspection Neurological Exam Neurological exam: Present alert and oriented X3 Psychiatric Psychiatric exam: Present normal affect Skin Skin exam: Present warm and dry Medical Decision Making <ABRAHAM Eubanks - Last Filed: 09/21/24 16:11> Medical Records Medical records reviewed: Yes I reviewed the patient's medical records. Screening: Per USPSTF and CDC recommendations, given the prevalence of disease in our region, it is our hospital?s policy to screen for HIV and viral Hepatitis for all patients aged 18 and over and those with ongoing risk factors. Nadir Inquiry Pt receiving controlled substance: No Nadir was queried for this patient: No Vital Signs: 09/21/24 13:29 09/21/24 13:31 09/21/24 15:04 Temperature 98 F Temperature Source Oral Pulse Rate 75 59 L Pulse Rate [Right Brachial] 75 Respiratory Rate 16 17 Blood Pressure 150/84 H Blood Pressure [Right Arm] 151/79 H Blood Pressure Mean [Right Arm] 103 Blood Pressure Source Blood Pressure Source [Right Arm] Automatic Cuff Blood Pressure Position Blood Pressure Position [Right Arm] Sitting 02 Sat by Pulse Oximetry 98 97 98 Oxygen Delivery Method Room Air Room Air 09/21/24 16:17 Temperature 98 F Temperature Source Oral Pulse Rate 63 Pulse Rate [Right Brachial] Respiratory Rate 16 Blood Pressure 114/62 Blood Pressure [Right Arm] Blood Pressure Mean [Right Arm] Blood Pressure Source Automatic Cuff Blood Pressure Source [Right Arm] Blood Pressure Position Sitting Blood Pressure Position [Right Arm] 02 Sat by Pulse Oximetry Oxygen Delivery Method Room Air Lab Data Lab results reviewed: Yes I reviewed the patient's lab results. Lab Results 09/21/24 13:30: Urine Color Yellow, Urine Appearance Clear, Urine pH 6.0, Ur Specific [place] 1.010, Urine Protein Negative, Urine Glucose (UA) Negative, Urine Ketones Negative, Urine Blood 2+ A, Urine Nitrate Negative, Urine Bilirubin Negative, Urine Urobilinogen 0.2, Ur Leukocyte Esterase Negative, Urine RBC 3-5, Urine WBC Occasional, Ur Squamous Epith Cells Occasional, Urine Bacteria Trace, Urine HCG, Qual Negative 09/21/24 14:00: WBC 6.5, RBC 4.08 L, Hgb 12.9, Hct 37.5, MCV 91.9, MCH 31.6 H, MCHC 34.4, RDW 13.4, Plt Count 261, MPV 10.3, Neut % (Auto) 56.7, Lymph % (Auto) 33.4, [place] % (Auto) 6.8, Eos % (Auto) 1.5, Baso % (Auto) 1.1, Neut # (Auto) 3.7, Lymph # (Auto) 2.2, [place] # (Auto) 0.4, Eos # (Auto) 0.1, Baso # (Auto) 0.1, PT 11.5, INR 1.04, Sodium 137, Potassium 4.2, Chloride 108 H, Carbon Dioxide 25, Anion Gap 8.2, BUN 8, Creatinine 0.80, Estimated Creat Clear 108, Estimated GFR 80, Est GFR ( Amer) 97, Glucose 95, Lactate 0.8, Calcium 9.0, Total Bilirubin 0.3, AST 23, ALT 15, Alkaline Phosphatase 77, Total Protein 6.8, Albumin 4.1, Globulin 2.7, Albumin/Globulin Ratio 1.5, Lipase 47, Blood Type O Positive 09/21/24 14:00 09/21/24 14:00 Orders (Tests/Meds): ED MEDICATIONS Discontinued Medications Generic Name Dose Route Start Last Admin Trade Name Freq PRN Reason Stop Dose Admin Ondansetron HCl 4 mg 09/21/24 15:06 09/21/24 15:10 Ondansetron 4mg/2ml Vial IV 09/21/24 15:07 4 mg ONCE ONE Administration ORDERS Category Date Time Status ABO/RH Type Stat BBK 09/21/24 14:00 Completed US transvaginal Stat Exams 09/21/24 13:46 Completed Complete Blood Count Auto Diff Stat Lab 09/21/24 14:00 Completed Comprehensive Metabolic Panel Stat Lab 09/21/24 14:00 Completed Lactic Acid Stat Lab 09/21/24 14:00 Completed Lipase Stat Lab 09/21/24 14:00 Completed PT INR [Prothrombin Time INR] Stat Lab 09/21/24 14:00 Completed Urinalysis and Microscopic Stat Lab 09/21/24 13:30 Completed Urine , HCG Qual. Stat Lab 09/21/24 13:30 Completed Medical Decision Narrative: 39-year-old female presents to the emergency department for abnormal vaginal bleeding, bloating, nausea, differential diagnosis include but not limited to, spontaneous , molar , ectopic , abnormal uterine bleeding, menorrhagia, metromenorrhagia, malignancy, ovarian cyst, PCOS, uterine fibroids, plantation of bleeding, subchorionic hematoma among others. I discussed this patient's case with the attending physician Dr. Sierra Will obtain basic laboratory studies, lipase level lactic acid level, PT/INR, UA, urine hCG qualitative, will also obtain transvaginal ultrasound and ABO Rh. UA notable for 2+ hematuria negative nitrites negative leukocyte esterase. hCG urine is negative CBC is within normal limits, no leukocytosis, no anemia CMP is unremarkable, lipase and lactic acid level within normal limits. Microscopic analysis of the patient's UA shows 3-5 RBCs, occasional WBCs, trace bacteria. PT/INR within normal limit Blood type O+ I was notified by nursing staff at approximately 3:05 PM that the patient is complaining of some nausea, will give 4 mg IV Zofran for nausea. I reviewed the patient's transvaginal ultrasound along with the corresponding radiological report, left ovary shows a large simple appearing cyst of approximately 4 cm in maximal dimension, follow-up ultrasound of the vasa cycle recommended, small amount of fluid in the cul-de-sac. I discussed this patient's case with the on-call ENVIRONMENTAL MARKETING REPRESENTATIVE at approximately 4:05 PM, she recommends follow-up in the ENVIRONMENTAL MARKETING REPRESENTATIVE clinic with repeat ultrasound for further evaluation/progression of the patient's left ovarian cyst. I discussed the results with the patient at the bedside patient is in agreement with the current discharge plan show treatment plan, I will prescribe antiemetics 4 mg p.o. sublingual Zofran as needed for nausea, recommend ibuprofen Tylenol rest ice as needed for symptomatic relief. Recommend return to the emergency department any worsening vaginal bleeding or pain or any other acute symptomatology. Patient voiced understanding and agreed with current treatment plan/discharge plan. <Jose Sierra MD - Last Filed: 09/21/24 18:40> Vital Signs: 09/21/24 13:29 09/21/24 13:31 09/21/24 15:04 Temperature 98 F Temperature Source Oral Pulse Rate 75 59 L Pulse Rate [Right Brachial] 75 Respiratory Rate 16 17 Blood Pressure 150/84 H Blood Pressure [Right Arm] 151/79 H Blood Pressure Mean [Right Arm] 103 Blood Pressure Source Blood Pressure Source [Right Arm] Automatic Cuff Blood Pressure Position Blood Pressure Position [Right Arm] Sitting 02 Sat by Pulse Oximetry 98 97 98 Oxygen Delivery Method Room Air Room Air 09/21/24 16:17 Temperature 98 F Temperature Source Oral Pulse Rate 63 Pulse Rate [Right Brachial] Respiratory Rate 16 Blood Pressure 114/62 Blood Pressure [Right Arm] Blood Pressure Mean [Right Arm] Blood Pressure Source Automatic Cuff Blood Pressure Source [Right Arm] Blood Pressure Position Sitting Blood Pressure Position [Right Arm] 02 Sat by Pulse Oximetry Oxygen Delivery Method Room Air Lab Data Lab Results 09/21/24 13:30: Urine Color Yellow, Urine Appearance Clear, Urine pH 6.0, Ur Specific [place] 1.010, Urine Protein Negative, Urine Glucose (UA) Negative, Urine Ketones Negative, Urine Blood 2+ A, Urine Nitrate Negative, Urine Bilirubin Negative, Urine Urobilinogen 0.2, Ur Leukocyte Esterase Negative, Urine RBC 3-5, Urine WBC Occasional, Ur Squamous Epith Cells Occasional, Urine Bacteria Trace, Urine HCG, Qual Negative 09/21/24 14:00: WBC 6.5, RBC 4.08 L, Hgb 12.9, Hct 37.5, MCV 91.9, MCH 31.6 H, MCHC 34.4, RDW 13.4, Plt Count 261, MPV 10.3, Neut % (Auto) 56.7, Lymph % (Auto) 33.4, [place] % (Auto) 6.8, Eos % (Auto) 1.5, Baso % (Auto) 1.1, Neut # (Auto) 3.7, Lymph # (Auto) 2.2, [place] # (Auto) 0.4, Eos # (Auto) 0.1, Baso # (Auto) 0.1, PT 11.5, INR 1.04, Sodium 137, Potassium 4.2, Chloride 108 H, Carbon Dioxide 25, Anion Gap 8.2, BUN 8, Creatinine 0.80, Estimated Creat Clear 108, Estimated GFR 80, Est GFR ( Amer) 97, Glucose 95, Lactate 0.8, Calcium 9.0, Total Bilirubin 0.3, AST 23, ALT 15, Alkaline Phosphatase 77, Total Protein 6.8, Albumin 4.1, Globulin 2.7, Albumin/Globulin Ratio 1.5, Lipase 47, Blood Type O Positive Orders (Tests/Meds): ED MEDICATIONS Discontinued Medications Generic Name Dose Route Start Last Admin Trade Name Freq PRN Reason Stop Dose Admin Ondansetron HCl 4 mg 09/21/24 15:06 09/21/24 15:10 Ondansetron 4mg/2ml Vial IV 09/21/24 15:07 4 mg ONCE ONE Administration ORDERS Category Date Time Status ABO/RH Type Stat BBK 09/21/24 14:00 Completed US transvaginal Stat Exams 09/21/24 13:46 Completed Complete Blood Count Auto Diff Stat Lab 09/21/24 14:00 Completed Comprehensive Metabolic Panel Stat Lab 09/21/24 14:00 Completed Lactic Acid Stat Lab 09/21/24 14:00 Completed Lipase Stat Lab 09/21/24 14:00 Completed PT INR [Prothrombin Time INR] Stat Lab 09/21/24 14:00 Completed Urinalysis and Microscopic Stat Lab 09/21/24 13:30 Completed Urine , HCG Qual. Stat Lab 09/21/24 13:30 Completed Medical Decision Narrative: 39-year-old female presents to the emergency department for abnormal vaginal bleeding, bloating, nausea, differential diagnosis include but not limited to, spontaneous , molar , ectopic , abnormal uterine bleeding, menorrhagia, metromenorrhagia, malignancy, ovarian cyst, PCOS, uterine fibroids, plantation of bleeding, subchorionic hematoma among others. I discussed this patient's case with the attending physician Dr. Sierra Will obtain basic laboratory studies, lipase level lactic acid level, PT/INR, UA, urine hCG qualitative, will also obtain transvaginal ultrasound and ABO Rh. UA notable for 2+ hematuria negative nitrites negative leukocyte esterase. hCG urine is negative CBC is within normal limits, no leukocytosis, no anemia CMP is unremarkable, lipase and lactic acid level within normal limits. Microscopic analysis of the patient's UA shows 3-5 RBCs, occasional WBCs, trace bacteria. PT/INR within normal limit Blood type O+ I was notified by nursing staff at approximately 3:05 PM that the patient is complaining of some nausea, will give 4 mg IV Zofran for nausea. I reviewed the patient's transvaginal ultrasound along with the corresponding radiological report, left ovary shows a large simple appearing cyst of approximately 4 cm in maximal dimension, follow-up ultrasound of the vasa cycle recommended, small amount of fluid in the cul-de-sac. I discussed this patient's case with the on-call ENVIRONMENTAL MARKETING REPRESENTATIVE at approximately 4:05 PM, she recommends follow-up in the ENVIRONMENTAL MARKETING REPRESENTATIVE clinic with repeat ultrasound for further evaluation/progression of the patient's left ovarian cyst. I discussed the results with the patient at the bedside patient is in agreement with the current discharge plan show treatment plan, I will prescribe antiemetics 4 mg p.o. sublingual Zofran as needed for nausea, recommend ibuprofen Tylenol rest ice as needed for symptomatic relief. Recommend return to the emergency department any worsening vaginal bleeding or pain or any other acute symptomatology. Patient voiced understanding and agreed with current treatment plan/discharge plan. I was consulted by the KIKE, and we discussed the complexity of the problems being addressed. I approve the treatment and management plan for this patient's care in the emergency department, thus performing a substantive portion of the medical decision making. Jose Sierra MD Critical Care <ABRAHAM Eubanks - Last Filed: 09/21/24 16:11> Critical Care Time Critical Care Time: No
[2024-09-21 13:31] VITALS: BP 151/79; PULSE 75; RESP 16; TEMP 36.6; O2SAT 97; BMI 25.0
--- OUTSIDE RECORDS SUMMARY | 2024-09-21 13:31 | XMS_ITS | Clinical Summary ---
Author Organization [facility] Address [address] [place], [place] [id number] Care Team Providers Care Hearing Healthcare Practitioner Name Role Phone Amando Cormier DO Primary Care Provider [phone] Social History Tobacco Use Types Packs/Day Years Used Date Smoking Tobacco: Every Day Alcohol Use Standard Drinks/Week Comments Yes 0 (1 standard drink = 0.6 oz pur e alcohol) Comments Unknown Sex and Gender Information Value Date Recorded Sex Assigned at Not on file Legal Sex Female 8:32 PM EDT Gender Identity Not on file Sexual Orientation Not on file Last Filed Vital Signs Vital Sign Reading Time Taken Comments Blood Pressure - - Pulse - - Temperature - - Respiratory Rate - - Oxygen Saturation - - Inhaled Oxygen Concentration - - Weight 84.8 kg (187 lb) 12/17/2011 1:55 PM EDT Height 170.2 cm (5' 7 ) 07/09/2011 10:00 AM EDT Body Mass Index 29.29 07/09/2011 10:00 AM EDT Plan of Treatment Health Maintenance Due Date Last Done Comments [facility]-Depression Screening 1985 [facility]-Infant/Child/Adol SDOH Screenings 1985 [facility]-Varicella Vaccines (1 of 2 - 13+ 2-dose series) 1998 HPV Vaccines (1 - 3-dose series) 02/14/2000 [facility]- SDOH Screenings 2003 [facility]-Adult SDOH Screenings 2003 [facility]-DTaP,Tdap,and Td Vaccine s (1 - Tdap) 02/14/2004 [facility]-Hepatitis B Vaccines (1 of 3 - 19+ 3-dose series) 02/14/2004 [facility]-Pap Smear 2006 [facility]-Cervical Cancer Screening 2015 [facility]-HPV/Cotest 2015 [id number] Vaccine (1 - 20 24-25 season) 2023 [facility]-Influenza Vaccine (#1) 2024 [facility]-Zoster Vaccines (1 of 2) 2035 [facility]-Hepatitis A Vaccines Aged Out 04/13/2018 No longer eligible based on patient's age to complete this topic [facility]-HIB Vaccines Aged Out No longer e ligible based on patient's age to complete this topic [facility]-IPV Vaccines Aged Out No longer e ligible based on patient's age to complete this topic [facility]-Pneumococcal Vaccine: Pediatrics (0 to 5 Years) and At-Risk Patients (6 to 49 Years) Aged Out No long er eligible based on patient's age to complete this topic [facility]-Rotavirus Vaccines Aged Out No lo nger eligible based on patient's age to complete this topic Insurance [employer] MEDICAID Care Teams Hearing Healthcare Practitioner Relationship Specialty Start Date End Date Amando Cormier DO [address] [place] [address] [place] [id number] PCP - General 07/05/20
--- NOTE | 2024-09-21 13:46 | US_ITS ---
PROCEDURE INFORMATION: Exam: US Pelvis, Transvaginal, Non-Obstetric Exam date and time: 09/21/2024 2:01 PM Age: 39 years old Clinical indication: Menstruation abnormalities; Excessive menstruation; With irregular cycle; Additional info: Abnormal vaginal bleeding, cramping, night sweats TECHNIQUE: Imaging protocol: Real-time transvaginal pelvic (non-obstetric) ultrasound with image documentation. Transvaginal imaging was used for better evaluation of the endometrium, adnexa, and/or cervix. COMPARISON: US ABDOMEN COMPLETE 11/19/2023 8:47 AM FINDINGS: Uterus: 9.3 x 4 x 4.2 cm. Cervical nabothian cysts/cyst. Endometrium 8 mm Right ovary/adnexa: 5 x 2.7 x 4.2 cm. Large simple appearing cyst of approximately 4 cm in maximal dimension. Doppler arterial and venous flow.Follow up ultrasound at a different phase of the cycle recommended. Left ovary/adnexa: 2.9 x 0.7 x 1.9 cm. Doppler arterial and venous flow. Small ovarian cyst versus paraovarian cyst of approximately 1 cm. Urinary bladder: Urinary bladder is limited. Intraperitoneal space: Small amount of fluid in the cul-de-sac. IMPRESSION: 1. Left ovary: Large simple appearing cyst of approximately 4 cm in maximal dimension. Follow up ultrasound at a different phase of the cycle recommended. 2. Small amount of fluid in the cul-de-sac.
[2024-09-21 13:50] LABS: Microscopic, Urine URINE MICROSCOPIC (MICROSCOPIC)
[2024-09-21 13:53] LABS: Bilirubin,Urine Negative (Negative); Color,Urine YELLOW (Yellow); Glucose,Urine (UA) Negative (Negative); Ketones,Urine Negative (Negative); Leukocyte Esterase,Urine Negative (Negative); PH,Urine 6.0 (5.0-8.5); Protein,Urine Negative (Negative); Specific Gravity, Urine 1.010 (1.005-1.030); Urobilinogen,Urine 0.2 EU/dl (0.2)
[2024-09-21 13:59] LABS: Urine Pregnancy, HCG Qual. Negative (Negative)
[2024-09-21 14:17] LABS: Hematocrit 37.5 % (37.0-47.0); Hemoglobin 12.9 g/dL (12.2-16.2); Immature Granulocytes % 0.5 %; Mean Corpuscular HGB Conc 34.4 g/dL (31.8-35.4); Mean Corpuscular Hemoglobin 31.6 pg (27.0-31.2); Mean Corpuscular Volume 91.9 fl (81-99); Nucleated Red Blood Cells % 0 %; Platelet Count 261 K/mm3 (142-424); Red Blood Count 4.08 M/mm3 (4.20-5.40); Red Cell Distribution Width-SD 45.1 fL; White Blood Count 6.5 K/mm3 (4.8-10.8)
[2024-09-21 14:26] LABS: Alanine Aminotransferase 15 U/L (12-78); Albumin Level 4.1 g/dl (3.5-5.0); Albumin/Globulin Ratio 1.5 (1.1-1.8); Alkaline Phosphatase 77 U/L (38-126); Anion Gap 8.2 mEq/L (5-15); Aspartate Amino Transferase 23 U/L (14-36); Bilirubin,Total 0.3 mg/dl (0.2-1.3); Blood Urea Nitrogen 8 mg/dl (7-17); Calcium 9.0 mg/dl (8.4-10.2); Carbon Dioxide 25 mmol/L (22.0-30.0); Chloride 108 mmol/L (98-107); Creatinine Clearance Estimated 108 mL/min (50-200); Creatinine,Serum 0.80 mg/dl (0.52-1.04); Estimated Glomerular Filt Rate 80 ml/min (>60); GFR (African American) 97 ML/MIN (>60); Globulin 2.7 g/dL (1.3-3.2); Glucose 95 mg/dl (74-100); INR 1.04 (0.9-1.1); Lipase 47 U/L (23-300); Potassium 4.2 mmoL/L (3.5-5.1); Prothrombin Time 11.5 seconds (10.1-12.5); Sodium 137 mmol/L (136-145); Total Protein,Serum 6.8 g/dl (6.3-8.2)
[2024-09-21 14:42] LABS: Squamous Epithelial Cell,Urine Occasional #/hpf (0-5); WBC,Urine Occasional #/hpf (0-3)
[2024-09-21 14:43] LABS: Bacteria,Urine Trace /lpf
[2024-09-21 15:04] VITALS: PULSE 59; RESP 17; O2SAT 98
[2024-09-21] MEDS: ONDANSETRON 4MG/2ML VIAL 4 MG IV (15:10)
[2024-09-21 16:17] VITALS: BP 114/62; PULSE 63; RESP 16; TEMP 36.6; O2SAT 98
== END 2024-09-21 16:18 | disposition home or self-care (01) ==
PROVIDERS: Physician Assistant; Emergency Provider Student in an Organized Health Care Education/Training Program
DX: N93.9 Abnormal uterine and vaginal bleeding, unspecified (principal); N83.202 Unspecified ovarian cyst, left side; F17.210 Nicotine dependence, cigarettes, uncomplicated
CPT/HCPCS: 76830; 80053; 81001; 81025; 83605; 83690; 85025; 85610; 86900; 86901; 99285; J2405

== ENCOUNTER 2024-09-27 08:20 | Outpatient (CLI) | payer MEDICAID, SELFPAY ==
--- OUTSIDE RECORDS SUMMARY | 2024-09-27 08:23 | XMS_ITS | Clinical Summary ---
Author Organization [facility] Address [address] [place], [place] [id number] Care Team Providers Care Process Controls Technician Name Role Phone Amando Cormier DO Primary Care Provider [phone] Social History Tobacco Use Types Packs/Day Years [...] Date Last Done Comments [facility]-Depression Screening 1985 [facility]-/Child/Adol SDOH Screenings 1985 [facility]-Varicella Vaccines (1 of 2 - 13+ 2-dose series) 1998 HPV Vaccines (1 - 3-dose series) 02/14/2000 [facility]- SDOH Screenings 2003 [facility]-Adult SDOH Screenings 2003 [facility]-DTaP,Tdap,and Td Vaccine s (1 - Tdap) 02/14/2004 [facility]-Hepatitis B Vaccines (1 of 3 - 19+ 3-dose series) 02/14/2004 [facility]-Pap Smear 2006 [facility]-Cervical Cancer Screening 2015 [facility]-HPV/Cotest 2015 [id number] Vaccine (1 - 20 24-25 season) 2023 [...] topic Insurance [employer] MEDICAID Care Teams Process Controls Technician Relationship Specialty Start Date End Date Amando Cormier DO [address] [place] [address] [place] [id number] PCP - General 07/05/20
--- NOTE | 2024-09-27 08:30 | US_ITS ---
PROCEDURE: US TRANSVAGINAL CLINICAL INDICATION: needs for ovarian cyst rupture f/u COMPARISON: US US TRANSVAGINAL from 09/21/2024 FINDINGS: Transvaginal sonographic images of the pelvis were obtained. UTERUS: 10.0 cm x 5.2cmx 4.2cm anteverted with a combined endometrial thickness of 8.4mm. The endometrium is trilaminar. There is a small, 0.6 cm nabothian cyst in the cervix. A scar is seen. LEFT OVARY: 1.8 cmx2.5cmx2.3cm with a volume of 5.3ml. RIGHT OVARY: 2.9 cmx 4.5cmx3.7 cm with a volume of 25.1ml. There continues to be a 4.1 cm cyst in the right ovary that has a daughter cyst within it. Similar in appearance to her last ultrasound. Both ovaries are seen and appear normal. Doppler flow to both ovaries are seen. There is no fluid in the cul-de-sac. IMPRESSION: 1. Anteverted, enlarged uterus. The endometrium measures 8.4 mm and appears trilaminar. 2. Left ovary is seen and appears normal. The right ovary contains a persistent 4.1 cm cyst that is similar in appearance and size to her last ultrasound 09/21/2024. Suggest repeat scan in 3 months. Likely benign follicular cyst. 3. No fluid in the cul-de-sac today. Dictated by: Amandeep Gonzalez MD 09/27/2024 17:29 Amandeep Gonzalez MD in OV 09/27/2024 17:29
== END 2024-09-27 23:59 | disposition home or self-care (01) ==
LOC: RAD 08:21
PROVIDERS: PCP Obstetrics & Gynecology; Visit Provider Obstetrics & Gynecology
DX: N83.201 Unspecified ovarian cyst, right side (principal); N88.8 Other specified noninflammatory disorders of cervix uteri
CPT/HCPCS: 76830

== ENCOUNTER 2024-10-03 09:48 | Outpatient (CLI) | payer MEDICAID, SELFPAY ==
--- OUTSIDE RECORDS SUMMARY | 2024-10-04 11:00 | XMS_ITS | Clinical Summary ---
Author Organization [facility] Address [address] [place], [place] [id number] Care Team Providers Care Bilingual Interpreter Name Role Phone Amando Cormier DO Primary Care Provider [phone] Social History Tobacco Use Types Packs/Day Years [...] of 2 - 13+ 2-dose series) 1998 [facility]- SDOH Screenings 2003 [facility]-Adult SDOH Screenings 2003 [facility]-DTaP,Tdap,and Td Vaccine s (1 - Tdap) 02/14/2004 [facility]-Hepatitis B Vaccines (1 of 3 - 19+ 3-dose series) 02/14/2004 [facility]-Pap Smear 2006 HPV Vaccines (1 - 3-dose SCD M series) 02/14/2012 [facility]-Cervical Cancer Screening 2015 [facility]-HPV/Cotest 2015 [id number] Vaccine (1 - 20 24-25 season) 2023 [...] to complete this topic Insurance [employer] [facility] MEDICAID Care Teams Bilingual Interpreter Relationship Specialty Start Date End Date Amando Cormier DO [address] [place] [address] [place] [id number] PCP - General 07/05/20
[2024-10-05 16:03] LABS: Bacterial Vaginosis Associated 0
== END 2024-10-03 23:59 | disposition home or self-care (01) ==
LOC: LAB.DROPOF 10-04 10:56
PROVIDERS: PCP Obstetrics & Gynecology; Visit Provider Obstetrics & Gynecology
DX: N93.9 Abnormal uterine and vaginal bleeding, unspecified (principal)
CPT/HCPCS: 87798; 87801

== ENCOUNTER 2025-01-22 09:04 | Outpatient (CLI) | payer MEDICAID, SELFPAY ==
--- NOTE | 2025-01-22 09:00 | US_ITS ---
PROCEDURE: US TRANSVAGINAL CLINICAL INDICATION: F/u for ovarian cyst COMPARISON: US US TRANSVAGINAL from 09/21/2024 US US TRANSVAGINAL from 09/27/2024 FINDINGS: Transvaginal sonographic images of the pelvis were obtained. UTERUS: 9.9 cm x 5.7 cmx 4.4cm with a combined endometrial thickness of 12.6mm. The endometrium is trilaminar. There is a nabothian cyst in the cervix. scar is noted. There is a small amount of fluid superior to the uterus. LEFT OVARY: 1.7 cmx2.1cmx2.2cm with a volume of 4.1ml. RIGHT OVARY: 3.1cmx 1.6 cmx2.2cm with a volume of 4.4ml. Both ovaries are seen and appear normal. Doppler flow to both ovaries are seen. There is small amount of fluid in the cul-de-sac. IMPRESSION: 1. Anteverted, bulky uterus. The endometrium is premenstrual and trilaminar. 2. Both ovaries are seen and appear normal. 3. The previously described 4 cm right ovarian cyst has now completely resolved. 4. There is a trace amount of fluid superior to the uterus and a small amount of fluid in the cul-de-sac, likely physiologic. Dictated by: Amandeep Gonzalez MD 01/22/2025 14:29 Amandeep Gonzalez MD in OV 01/22/2025 14:29
--- OUTSIDE RECORDS SUMMARY | 2025-01-22 09:12 | XMS_ITS | Clinical Summary ---
Author Organization [facility] Address [address] [place], [place] [id number] Care Team Providers Care Awning Spreader Name Role Phone Amando Cormier DO Primary Care Provider [phone] Social History Tobacco Use Types Packs/Day Years [...] 02/14/2012 [facility]-Cervical Cancer Screening 2015 [facility]-HPV/Cotest 2015 [id number] Vaccine (1 - 20 25-26 season) 2024 [facility]-Influenza Vaccine (#1) 2024 [facility]-Zoster Vaccines (1 [...] to complete this topic Insurance [place] [id number] [facility] MEDICAID Care Teams Awning Spreader Relationship Specialty Start Date End Date Amando Cormier DO [address] [place] [address] [place] [id number] PCP - General 07/05/20
== END 2025-01-22 23:59 | disposition home or self-care (01) ==
LOC: RAD 09:04
PROVIDERS: Visit Provider Obstetrics & Gynecology
DX: N85.4 Malposition of uterus (principal); N85.2 Hypertrophy of uterus; N83.202 Unspecified ovarian cyst, left side; R93.89 Abnormal findings on diagnostic imaging of other specified body structures
CPT/HCPCS: 76830